=== PATIENT | female | born 1955 | race Caucasian/White ===

== ENCOUNTER 2017-07-22 | Emergency (ER) | payer BC ==
[~2017-07-22] VITALS: Ht 162.6 cm; Wt 91.2 kg
[~2017-07-22] MED LIST: ATENOLOL PO; OXAZEPAM10 MG PO; PAXIL CR12.5 MG PO; VITAMIN B-12 PO; VITAMIN D PO
[2017-07-22] MEDS ORDERED: KETOROLAC TROMETHAMINE 30 MG/ML VIAL IV STA (00:14)
[2017-07-22 00:49] LABS: BASOPHILS # (AUTO) 0.1 (0.0-0.1); BASOPHILS % 0.8 % (0.0-1.0); EOSINOPHILS # (AUTO) 0.3 (0.0-0.4); EOSINOPHILS % 2.7 % (0.0-6.0); HEMATOCRIT 44.1 % (34.2-44.1); HEMOGLOBIN 14.8 g/dL (12.0-16.0); LYMPHOCYTES # (AUTO) 2.2 (1.0-3.2); LYMPHOCYTES % 18.3 % (18.0-39.1); MEAN CORPUSCULAR HGB CONC 33.6 g/dL (31-35); MEAN CORPUSCULAR VOLUME 92.5 fL (81-99); MONOCYTES # (AUTO) 1.7 (0.2-0.8); MONOCYTES % 13.6 % (4.4-11.3); NEUTROPHILS # (AUTO) 7.7 (2.1-6.9); NEUTROPHILS % 63.3 % (38.7-80.0); PLATELET COUNT 289 x10e3/uL (140-360); RED BLOOD COUNT 4.77 x10e6/uL (3.6-5.1); RED CELL DISTRIBUTION WIDTH 14.4 % (11.7-14.4)
[2017-07-22 01:01] LABS: BILIRUBIN,URINE NEGATIVE (NEGATIVE); CLARITY,URINE CLEAR (CLEAR); COLOR,URINE YELLOW (YELLOW); KETONES,URINE NEGATIVE (NEGATIVE); LEUKOCYTE ESTERASE ,URINE NEGATIVE (NEGATIVE); NITRITE,URINE NEGATIVE (NEGATIVE); PROTEIN,URINE DIPSTICK NEGATIVE (NEGATIVE)
[2017-07-22 01:02] LABS: URINE UROBILINOGEN 1 mg/dL (0.2 - 1)
[2017-07-22 01:07] LABS: ALANINE AMINOTRANSFERASE 20 IU/L (0-55); ALBUMIN 3.3 g/dL (3.5-5.0); ALBUMIN/GLOBULIN RATIO 0.8 (0.8-2.0); ALKALINE PHOSPHATASE 79 IU/L (40-150); ANION GAP 12.1 mmol/L (8-16); BLOOD UREA NITROGEN 14 mg/dL (7-26); BUN/CREATININE RATIO 18 (6-25); CALCIUM 9.9 mg/dL (8.4-10.2); CARBON DIOXIDE 31 mmol/L (22-29); CHLORIDE 99 mmol/L (98-107); CREATININE, SERUM 0.79 mg/dL (0.57-1.11); EST GLOMERULAR FILTRATION RATE > 60 ML/MIN (60-); GLUCOSE 84 mg/dL (74-118); POTASSIUM 3.1 mmol/L (3.5-5.1); SODIUM 139 mmol/L (136-145)
[2017-07-22 01:18] LABS: WBC,URINE (MAN) 0-5 /HPF (0-5)
[2017-07-22 01:19] LABS: BACTERIA,URINE FEW /HPF; EPITHELIAL CELLS,URINE FEW /LPF; RBC,URINE 0-5 /HPF (0-5)
--- NOTE | 2017-07-22 01:28 | Diagnostic Imaging Report ---
CHEST SINGLE (PORTABLE), 07/22/2017 12:13 AM Technique: CHEST SINGLE (PORTABLE) Comparison: None available. Clinical history: Painful inspiration Findings: Limited single portable view Heart/mediastinum: Normal for portable technique. Lungs/pleural spaces: No consolidation or edema. Focal appearance right basilar pleural thickening or fluid. Impression: Focal apparent right basilar pleural thickening or fluid. Recommend upright PA and lateral for better evaluation. Signed by: Dr Sumaya Hernandez MD on 07/22/2017 1:25 AM
[2017-07-22 02:21] LABS: LYMPHOCYTES % (MANUAL) 18 % (19-48); MONOCYTES % (MANUAL) 14 % (3.4-9.0); NEUTROPHILS % (MANUAL) 65 % (40-74); PLATELET ESTIMATE ADEQUATE; PLATELET MORPHOLOGY COMMENT NORMAL; RBC MORPHOLOGY COMMENT NORMAL
[2017-07-22] MEDS ORDERED: SODIUM CHLORIDE 0.9% 50ML 50 ML ONE (02:33)
[2017-07-22] MEDS ORDERED: IOPAMIDOL 370 MG/ML 200 ML INFUS..BTL INJ ONE (02:33)
--- NOTE | 2017-07-22 02:58 | Diagnostic Imaging Report ---
EXAM: CT CHEST W DATE: 07/22/2017 1:21 AM INDICATION: Right-sided pain COMPARISON: None TECHNIQUE: Multidetector CT scanning of the chest was performed. Coronal and sagittal multiplanar reformations were obtained. IV Contrast: 72 ml Isovue 370/300 FINDINGS: LUNGS AND PLEURA: Mild underlying emphysema. 2 mm right middle lobe nodule, nonspecific. There is focal right lateral basilar and lingular opacity. Minimal left basilar scarring. No effusions or pneumothorax. HEART, MEDIASTINUM, VESSELS: No evidence of acute pulmonary artery embolism. Main pulmonary artery and aorta are normal in caliber. Scattered coronary artery and aortic atherosclerotic change. Normal heart size. No pericardial effusion. No adenopathy. Incidental right thyroid nodules noted at the visualized lung bases. UPPER ABDOMEN: Status post cholecystectomy. Otherwise unremarkable. MUSCULOSKELETAL: No acute findings. IMPRESSION: 1. No evidence of acute pulmonary artery embolism. 2. Right lateral basilar lingular opacity, favor scarring or sequelae of recent/resolving infection. Recommend short-term follow-up upright PA and lateral radiographs to document stability. 3. Mild emphysematous changes. Signed by: Dr Sumaya Hernandez MD on 07/22/2017 2:55 AM
== END 2017-07-22 03:25 | disposition home or self-care (01) ==
LOC: ER
DX: R10.9 Unspecified abdominal pain (principal); R09.1 Pleurisy; J15.9 Unspecified bacterial pneumonia; I10 Essential (primary) hypertension; F41.9 Anxiety disorder, unspecified; F32.9 Major depressive disorder, single episode, unspecified; F17.210 Nicotine dependence, cigarettes, uncomplicated
CPT/HCPCS: 36415; 71045; 71260; 80053; 81001; 85025; 85379; 99284; J1885; Q9967

== ENCOUNTER 2018-07-10 07:33 | Emergency (ER) | payer BC ==
[~2018-07-10] VITALS: Ht 162.6 cm; Wt 91.2 kg
--- OUTSIDE RECORDS SUMMARY | 2018-07-10 07:35 | XMS REPORT | Summary of Care ---
Author Organization Unknown Address Unknown Phone Unavailable Encounter HQ Encntr_alias(FIN) [id number] Date(s): 08/20/14 - 08/20/14 [facility] Outpatient Imaging [address] [address]- [phone] Discharge Disposition: Home Physician Attending: Bharath Cassidy MD Vital Signs No data available for this section Problem List No data available for this section Allergies, Adverse Reactions, Alerts Substance Reaction Severity Status NKDA Active Medications No data available for this section Results No data available for this section Immunizations No data available for this section Procedures No data available for this section Social History No data available for this section Assessment and Plan No data available for this section
--- OUTSIDE RECORDS SUMMARY | 2018-07-10 07:35 | XMS REPORT | Continuity of Care Document ---
Author Author [facility] Interface Address Unknown Phone Unavailable Problems Problem Status Onset Date Classification Date Reported Comments Source LAP VAG HYST Active 06/23/2018 [facility] Z12.39 Z13.820 Active 02/18/2018 [facility] R92.8 OTHER ABNORMAL AND INCONCLUSIVE FI Active 11/08/2015 [facility] 6 MONTH FOLLOW UP A FOLLOW-UP R Active 05/28/2015 [facility] ABN MAMMO RT BREAST Active 11/08/2014 [facility] BACK PAIN Active 02/24/2007 [facility] Medications Medication Details Route Status Patient Instructions Ordering Provider Order Date Source Atenolol Daily [facility] Oxazepam 10 Mg Cap Daily Active [facility] Paroxetine Hcl (Paxil Cr) 12.5 Mg Tabsr Daily Active [facility] Vitamin B-12 Daily [facility] Vitamin D Daily [facility] Allergies, Adverse Reactions, Alerts Substance Category Reaction Severity Reaction type Status Date Reported Comments Source Immunizations Immunization Date Given Site Status Last Updated Comments Source Results Order Name Results Value Reference Range Date Interpretation Comments Source Intravenous Pyelogram DX Intravenous Pyelogram DX Intravenous Pyelogram DX CLINICAL HISTORY: - post-op hysterectomy. COMPARISON: None TECHNIQUE: IVP was performed with standard technique after intravenous infusion of nonionic contrast material. 100cc of omnipaque> contrast material was administered. 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 There are no radiopaque densities. There are no gross osseous abnormalities seen. Kidneys: There are prompt symmetric nephrograms with prompt excretion into the renal collecting systems. There are no filling defects or strictures noted. There are no contour deforming renal masses. Ureters: Both ureters are visualized segmentally in their entire course. There are no gross filling defects or strictures. There is no evidence for injury to either ureter. No leakage of contrast is noted in the peritoneum. Bladder: There is normal bladder contour and morphology. No gross filling defects or contour irregularities. There is no significant post void residual. IMPRESSION: Negative study. There is no evidence for obstruction or ureteral injury. SL: [id number] 07/08/2018 - - Read by: Brian Philippe MD Dictated Date/time: 07/08/18 08:32 Electronically Signed by: Brian Philippe MD 07/08/18 08:34 FINAL REPORT [facility] Breast Mammo Scrn [place] w campos incl CAD [place] Breast Mammo Scrn [place] w campos incl CAD [place] BILATERAL DIGITAL SCREENING MAMMOGRAM 3D/2D WITH CAD: 03/09/2018 CLINICAL: /Routine. Current study was evaluated with a Computer Aided Detection (CAD) system. COMPARISON:Comparison is made to exams dated: 11/20/2015 mammogram, 06/17/2015 mammogram, 11/14/2014 mammogram - [facility], 08/20/2014 mammogram, and 05/20/2007 mammogram - [facility]. TECHNIQUE: Digital Breast Tomosynthesis was performed and utilized for Interpretation. [employer] Version 1.3 was utilized for computer aided detection. FINDINGS: The tissue of both breasts is almost entirely fat. Patient complains of intermittent breast pain and/or tenderness. There are benign calcifications and nodules in the right breast. There also is a stable benign nodule in the left breast. No significant masses, calcifications, or other findings are seen in either breast. There has been no significant interval change. IMPRESSION: BENIGN RECOMMENDATION:Clinical management of the patient's breast complaints is recommended. There is no mammographic evidence of malignancy. A 1 year screening mammogram is recommended.(03/10/2019) This exam was interpreted at [id number] for [facility]. Burak parham/spenser:03/09/2018 14:54:15 Manager Transport(s): Kimmy Soriano [facility] letter sent: BI-RADS 1/2 Mammogram BI-RADS: 2 Benign 03/09/2018 - - Read by: Burak Brannon MD Dictated Date/time: 03/09/18 14:54 Electronically Signed by: Burak Brannon MD 03/09/18 14:54 FINAL REPORT [facility] Automated blood basophil count (count/volume) Automated blood basophil count (count/volume) 0.1 0.0 - 0.1 07/22/2017 [facility] Automated blood basophil count as percentage of total leukocytes Automated blood basophil count as percentage of total leukocytes 0.8 0.0 - 1.0 07/22/2017 [facility] Automated blood eosinophil count Automated blood eosinophil count 0.3 0.0 - 0.4 07/22/2017 [facility] Automated blood eosinophil count as percentage of total leukocytes Automated blood eosinophil count as percentage of total leukocytes 2.7 0.0 - 6.0 07/22/2017 [facility] Automated blood hematocrit (volume fraction) Automated blood hematocrit (volume fraction) 44.1 34.2 - 44.1 07/22/2017 [facility] Automated blood lymphocyte count as percentage ot total leukocytes Automated blood lymphocyte count as percentage ot total leukocytes 18.3 18.0 - 39.1 07/22/2017 [facility] Automated blood monocyte count as percentage of total leukocytes Automated blood monocyte count as percentage of total leukocytes 13.6 4.4 - 11.3 07/22/2017 [facility] Automated blood neutrophil count Automated blood neutrophil count 7.7 2.1 - 6.9 07/22/2017 [facility] Automated blood platelet count (count/volume) Automated blood platelet count (count/volume) 289 140 - 360 07/22/2017 [facility] Automated blood segmented neutrophil count as percentage of total leukocytes Automated blood segmented neutrophil count as percentage of total leukocytes 63.3 38.7 - 80.0 07/22/2017 [facility] Automated erythrocyte mean corpuscular hemoglobin (mass per erythrocyte) Automated erythrocyte mean corpuscular hemoglobin (mass per erythrocyte) 31.0 28 - 32 07/22/2017 [facility] Automated erythrocyte mean corpuscular hemoglobin concentration measurement (mass/volume) Automated erythrocyte mean corpuscular hemoglobin concentration measurement (mass/volume) 33.6 31 - 35 07/22/2017 [facility] Automated erythrocyte mean corpuscular volume Automated erythrocyte mean corpuscular volume 92.5 81 - 99 07/22/2017 [facility] Blood erythrocytes automated count (number/volume) Blood erythrocytes automated count (number/volume) 4.77 3.6 - 5.1 07/22/2017 [facility] Blood hemoglobin measurement (moles/volume) Blood hemoglobin measurement (moles/volume) 14.8 12.0 - 16.0 07/22/2017 [facility] Blood leukocytes automated count (number/volume) Blood leukocytes automated count (number/volume) 12.17 4.8 - 10.8 07/22/2017 [facility] Blood lymphocytes count (number/volume) Blood lymphocytes count (number/volume) 2.2 1.0 - 3.2 07/22/2017 [facility] Blood lymphocytes variant count (number/volume) Blood lymphocytes variant count (number/volume) 3 07/22/2017 [facility] Blood monocytes automated count (number/volume) Blood monocytes automated count (number/volume) 1.7 0.2 - 0.8 07/22/2017 [facility] Blood platelets count by estimate (number/volume) Blood platelets count by estimate (number/volume) ADEQUATE 07/22/2017 [facility] Estimated glomerular filtration rate (GFR) determination Estimated glomerular filtration rate (GFR) determination null 60 07/22/2017 [facility] Fibrin D-dimer DDU measurement in platelet poor plasma (mass/volume) Fibrin D-dimer DDU measurement in platelet poor plasma (mass/volume) 1.18 0.00 - 0.45 07/22/2017 [facility] Glucose measurement Glucose measurement 84 74 - 118 07/22/2017 [facility] Manual blood lymphocytes/100 leukocytes Manual blood lymphocytes/100 leukocytes 18 19 - 48 07/22/2017 [facility] Manual blood monocytes/100 leukocytes Manual blood monocytes/100 leukocytes 14 3.4 - 9.0 07/22/2017 [facility] Manual blood neutrophils/100 leukocytes Manual blood neutrophils/100 leukocytes 65 40 - 74 07/22/2017 [facility] Plasma globulin measurement (mass/volume) Plasma globulin measurement (mass/volume) 4.4 2.3 - 3.5 07/22/2017 [facility] Platelet morphology Platelet morphology NORMAL 07/22/2017 [facility] RBC morphology RBC morphology NORMAL 07/22/2017 [facility] Serum or plasma alanine aminotransferase measurement (enzymatic activity/volume) Serum or plasma alanine aminotransferase measurement (enzymatic activity/volume) 20 0 - 55 07/22/2017 [facility] Serum or plasma albumin measurement (mass/volume) Serum or plasma albumin measurement (mass/volume) 3.3 3.5 - 5.0 07/22/2017 [facility] Serum or plasma albumin/globulin mass ratio Serum or plasma albumin/globulin mass ratio 0.8 0.8 - 2.0 07/22/2017 [facility] Serum or plasma alkaline phosphatase measurement (enzymatic activity/volume) Serum or plasma alkaline phosphatase measurement (enzymatic activity/volume) 79 40 - 150 07/22/2017 [facility] Serum or plasma anion gap Serum or plasma anion gap 12.1 8 - 16 07/22/2017 [facility] Serum or plasma calcium measurement (mass/volume) Serum or plasma calcium measurement (mass/volume) 9.9 8.4 - 10.2 07/22/2017 [facility] Serum or plasma carbon dioxide, total measurement (moles/volume) Serum or plasma carbon dioxide, total measurement (moles/volume) 31 22 - 29 07/22/2017 [facility] Serum or plasma chloride measurement (moles/volume) Serum or plasma chloride measurement (moles/volume) 99 98 - 107 07/22/2017 [facility] Serum or plasma creatinine measurement (mass/volume) Serum or plasma creatinine measurement (mass/volume) 0.79 0.57 - 1.11 07/22/2017 [facility] Serum or plasma potassium measurement (moles/volume) Serum or plasma potassium measurement (moles/volume) 3.1 3.5 - 5.1 07/22/2017 [facility] Serum or plasma protein measurement (mass/volume) Serum or plasma protein measurement (mass/volume) 7.7 6.5 - 8.1 07/22/2017 [facility] Serum or plasma sodium measurement (moles/volume) Serum or plasma sodium measurement (moles/volume) 139 136 - 145 07/22/2017 [facility] Serum or plasma total bilirubin measurement (mass/volume) Serum or plasma total bilirubin measurement (mass/volume) 0.6 0.2 - 1.2 07/22/2017 [facility] Serum or plasma urea nitrogen measurement (mass/volume) Serum or plasma urea nitrogen measurement (mass/volume) 14 7 - 26 07/22/2017 [facility] Serum or plasma urea nitrogen/creatinine mass ratio Serum or plasma urea nitrogen/creatinine mass ratio 18 6 - 25 07/22/2017 [facility] Red Cell Distribution Width 14.4 11.7 - 14.4 07/22/2017 [facility] IM GRANULOCYTES % 1.3 0.0 - 1.0 07/22/2017 [facility] Absolute Immature Granulocyte (auto 0.16 0 - 0.1 07/22/2017 [facility] Differential Total Cells Counted 100 07/22/2017 [facility] Aspartate Amino Transf (AST/SGOT) 23 5 - 34 07/22/2017 [facility] Automated urine sediment leukocyte count by microscopy (number/high power field) Automated urine sediment leukocyte count by microscopy (number/high power field) null 0 - 5 07/22/2017 [facility] Bacteria detection in urine sediment by light microscopy Bacteria detection in urine sediment by light microscopy FEW NONE 07/22/2017 [facility] Epithelial cells detection in urine sediment by light microscopy Epithelial cells detection in urine sediment by light microscopy FEW NONE 07/22/2017 [facility] Erythrocytes detection in urine sediment by light microscopy Erythrocytes detection in urine sediment by light microscopy null 0 - 5 07/22/2017 [facility] Specific gravity of Urine by Test strip Specific gravity of Urine by Test strip 1.020 1.010 - 1.025 07/22/2017 [facility] Urine clarity Urine clarity CLEAR CLEAR 07/22/2017 [facility] Urine color determination Urine color determination YELLOW YELLOW 07/22/2017 [facility] Urine erythrocytes detection Urine erythrocytes detection TRACE NEGATIVE 07/22/2017 [facility] Urine glucose detection Urine glucose detection NEGATIVE NEGATIVE 07/22/2017 [facility] Urine ketones detection by automated test strip Urine ketones detection by automated test strip NEGATIVE NEGATIVE 07/22/2017 [facility] Urine leukocyte esterase detection by dipstick Urine leukocyte esterase detection by dipstick NEGATIVE NEGATIVE 07/22/2017 [facility] Urine nitrite detection Urine nitrite detection NEGATIVE NEGATIVE 07/22/2017 [facility] Urine pH measurement by automated test strip Urine pH measurement by automated test strip 6 5 - 7 07/22/2017 [facility] Urine protein measurement by test strip (mass/volume) Urine protein measurement by test strip (mass/volume) NEGATIVE NEGATIVE 07/22/2017 [facility] Urine total bilirubin measurement (mass/volume) Urine total bilirubin measurement (mass/volume) NEGATIVE NEGATIVE 07/22/2017 [facility] Urine urobilinogen measurement by test strip (mass/volume) Urine urobilinogen measurement by test strip (mass/volume) 1 0.2 - 1 07/22/2017 [facility] Breast Complete Uni US Breast Complete Uni US - BREAST COMPLETE UNI US/R ULTRASOUND OF RIGHT BREAST AND RIGHT AXILLA: 11/20/2015 CLINICAL: Cyst abnormal mammogram, mammographic nodule/density probably benign finding - follow up. Comparison is made to exams dated: 11/20/2015 mammogram, 06/17/2015 ultrasound, 06/17/2015 mammogram, 11/14/2014 ultrasound, 11/14/2014 mammogram - [facility] and 08/20/2014 mammogram - [facility]. Color flow and real-time ultrasound of the right breast and axilla were performed. Goss scale images of the real-time examination were reviewed. All 4 quadrants, the retroareolar region and axilla are evaluated in this exam. There is a stable 6 mm wider than tall oval cyst with a septated internal wall in the right breast at 6 o'clock in the retroareolar region. This oval cyst is hypoechoic with internal echoes and posterior acoustic enhancement. This correlates with mammography and ultrasound findings. Color flow imaging demonstrates that there is no vascularity present. Benign right breast 6 o'clock intramammary node is noted as well. No abnormalities were seen sonographically in the right axilla. There has been no significant interval change. IMPRESSION: PROBABLY BENIGN - FOLLOW-UP RECOMMENDED The stable 6 mm wider than tall oval cyst in the right breast likely represents a complicated cyst and is probably benign. This has shown 1 year of stability. A follow-up bilateral diagnostic mammogram and possible ultrasound in 12 months is recommended. The results were reviewed with the patient. Burak Brannon M.D. jt/:11/20/2015 09:56:55 Manager Transport: Markus Simon, [facility] This exam was dictated and interpreted by [id number] for [facility]. letter sent: Followup Ultrasound BI-RADS: 3 Probably benign 11/20/2015 - - Read by: Burak Brannon MD Dictated Date/time: 11/20/15 09:56 Electronically Signed by: Burak Brannon MD 11/20/15 09:56 FINAL REPORT [facility] Digital Mammo DX [place] Digital Mammo DX [place] - DIGITAL MAMMO DX [place] BILATERAL DIGITAL DIAGNOSTIC MAMMOGRAM WITH CAD: 11/20/2015 CLINICAL: 6 Mo Follow Up probably benign finding right breast mass. Current study was evaluated with a Computer Aided Detection (CAD) system. Comparison is made to exams dated: 06/17/2015 mammogram, 11/14/2014 mammogram - [facility], 08/20/2014 mammogram, 05/20/2007 mammogram - [facility], 07/28/2005 and 10/10/2002 mammogram - [facility]. There are scattered fibroglandular densities in both breasts. There is a benign calcification in the right breast. There also are benign nodules in the right breast. There is an 8 mm nodule in the right breast central to the nipple anterior depth. This is demonstrated by prior ultrasound. This is not significantly changed and correlates with the prior exam. No other significant masses, calcifications, or other findings are seen in either breast. There has been no significant interval change. IMPRESSION: INCOMPLETE: NEEDS ADDITIONAL IMAGING EVALUATION The 8 mm nodule in the right breast is indeterminate. An ultrasound is recommended. The results were reviewed with the patient. SUMMARY: Ultrasound will be performed at this time; please see dedicated separate report. Ultrasound will also reevaluate prior probably benign findings. Burak parham/penrad:11/20/2015 09:50:43 Manager Transport: Junie Santos, [facility] This exam was dictated and interpreted by [id number] for [facility]. Mammogram BI-RADS: 0 Indeterminate 11/20/2015 - - Read by: Burak Brannon MD Dictated Date/time: 11/20/15 09:50 Electronically Signed by: Burak Brannon MD 11/20/15 09:50 FINAL REPORT [facility] Pelvis w Pelvis Transvaginal US Pelvis w Pelvis Transvaginal US Clinical Indication: 60-year-old A2 female with postmenopausal bleeding; Comparison: Pelvic ultrasound 08/20/2014 US PELVIS Technique: Grayscale, color and Doppler transabdominal and transvaginal imaging of the pelvis was performed with standard technique. FINDINGS: TRANSABDOMINAL PELVIC ULTRASOUND: UTERUS: The transabdominal pelvic ultrasound evaluation of the uterus shows anteverted uterus. The uterine parenchyma is not well assessed on the transabdominal pelvic ultrasound. OVARIES: The ovaries are not well seen on the transabdominal portion of the exam, related to bowel gas in the pelvis. OTHER FINDINGS: The transabdominal sonographic images show no free fluid in the pelvic cul-de-sac. IMPRESSION: 1. Limited assessment of the uterine parenchyma and ovaries on the transabdominal pelvic ultrasound, related to bowel gas in the pelvis. This necessitated a pelvic transvaginal ultrasound. Recommend correlation with the transvaginal pelvic ultrasound report. TRANSVAGINAL PELVIC ULTRASOUND: UTERUS: The pelvic transvaginal sonographic images show normal uterine contour and morphology. The uterus measures 6.2 x 3.4 x 5.8 cm. There is normal parenchymal echotexture. The endometrial stripe measures 11 mm in thickness. No increase in vascularity on color Doppler. Nabothian cysts in the cervix are noted. OVARIES: The transvaginal pelvic sonographic images show that the right ovary measures 2.8 x 1.7 x 1.8 cm and the left ovary measures 2.5 x 1.8 x 1.6 cm. There is normal ovarian contour and morphology. There are no adnexal masses. The limited Doppler images show normal bilateral ovarian blood flow. OTHER FINDINGS: The transvaginal sonographic images show no free fluid in the pelvic cul-de-sac. If there is further concern, followup pelvic sonography or MRI of the pelvis may be performed. IMPRESSION: 1. Diffuse mildly thickened endometrium, not significantly changed since 08/20/2014. In this postmenopausal patient with bleeding, this may represent endometrial hyperplasia or malignancy. SL: [id number] 11/20/2015 - - Read by: Castro Coyle MD Dictated Date/time: 11/20/15 11:21 Electronically Signed by: Castro Coyle MD 11/20/15 11:24 FINAL REPORT [facility] Breast Complete Uni US Breast Complete Uni US - BREAST COMPLETE UNI US/R ULTRASOUND OF RIGHT BREAST AND RIGHT AXILLA: 06/17/2015 CLINICAL: Cyst. Comparison is made to exams dated: 06/17/2015 mammogram, 11/14/2014 ultrasound and 11/14/2014 mammogram - [facility]. Ultrasound was performed over all four quadrants, retroareolar region, and axilla. Color flow and real-time ultrasound of the right breast and axilla were performed. Goss scale images of the real-time examination were reviewed. There is a stable 6 mm wider than tall oval nodule with a circumscribed margin in the right breast at 6 o'clock in the retroareolar region. This oval nodule is hypoechoic. This correlates with mammography findings. No abnormalities were seen sonographically in the right axilla. There has been no significant interval change. IMPRESSION: PROBABLY BENIGN - FOLLOW-UP RECOMMENDED The stable 6 mm wider than tall oval nodule in the right breast likely represents a complicated cyst and is probably benign. A follow-up mammogram and an ultrasound in 6 months is recommended to demonstrate stability. Nic Farrar M.D. ap/penrad:06/17/2015 10:18:03 Manager Transport: Markus Simon, [facility] This exam was dictated and interpreted by [id number] for [facility]. letter sent: Followup Ultrasound BI-RADS: 3 Probably benign 06/17/2015 - - Read by: Nic Farrar MD Dictated Date/time: 06/17/15 10:18 Electronically Signed by: Nic Farrar MD 06/17/15 10:18 FINAL REPORT [facility] Digital Mammo DX [place] Digital Mammo DX [place] - DIGITAL MAMMO DX [place]I MA/R UNILATERAL RIGHT DIGITAL DIAGNOSTIC MAMMOGRAM: 06/17/2015 CLINICAL: 6 Mth F/U. Comparison is made to exams dated: 11/14/2014 mammogram - [facility], 08/20/2014 mammogram, 05/20/[address] - [facility], 07/28/2005 and 10/10/2002 mammogram - [facility]. There are scattered fibroglandular densities in the right breast. There is a benign calcification in the right breast. There also are benign nodules in the right breast. There is a stable nodule in the right breast central to the nipple anterior depth. No other significant masses or calcifications are seen in the breast. IMPRESSION: INCOMPLETE: NEEDS ADDITIONAL IMAGING EVALUATION The stable nodule in the right breast is indeterminate. An ultrasound is recommended. SUMMARY: Ultrasound will be performed at this time; please see dedicated separate report. Nic Farrar M.D. ap/penrad:06/17/2015 09:25:17 Manager Transport: Kimmy Soriano, [facility] This exam was dictated and interpreted by [id number] for [facility]. Mammogram BI-RADS: 0 Indeterminate 06/17/2015 - - Read by: Nic Farrar MD Dictated Date/time: 06/17/15 09:25 Electronically Signed by: Nic Farrar MD 06/17/15 09:25 FINAL REPORT [facility] [facility] Breast Complete Uni US Breast Complete Uni US - BREAST COMPLETE UNI US/R ULTRASOUND OF RIGHT BREAST AND RIGHT AXILLA: 11/14/2014 CLINICAL: Nodule abnormal mammogram, mammographic nodule/density. Comparison is made to exams dated: 11/14/2014 mammogram - [facility], 08/20/2014 mammogram, 05/20/2007 mammogram - [facility] and 07/28/2005. Color flow and real-time ultrasound of the right breast and axilla were performed. Goss scale images of the real-time examination were reviewed. All 4 quadrants, the retroareolar region and axilla are evaluated in this exam. There is a 5 mm wider than tall oval cyst with a septated internal wall in the right breast at 6 o'clock middle depth. This oval cyst is hypoechoic with internal echoes and posterior acoustic enhancement. This most likely correlates with mammography findings. Color flow imaging demonstrates that there is no vascularity present. No abnormalities were seen sonographically in the right axilla. IMPRESSION: PROBABLY BENIGN - FOLLOW-UP RECOMMENDED The 5 mm wider than tall oval cyst in the right breast is probably benign. A follow-up in 6 months is recommended. A follow-up right diagnostic mammogram with possible ultrasound in 6 months is recommended to demonstrate stability. Burak parham/:11/14/2014 09:33:32 Manager Transport: Markus Simon, [facility] This exam was dictated and interpreted by [id number] for [facility]. letter sent: Followup Ultrasound BI-RADS: 3 Probably benign 11/14/2014 - - Read by: Burak Brannon MD Dictated Date/time: 11/14/14 09:33 Electronically Signed by: Burak Brannon MD 11/14/14 09:33 FINAL REPORT [facility] Digital Mammo DX Uni MA Digital Mammo DX Uni MA - DIGITAL MAMMO DX UNI MA/R UNILATERAL RIGHT DIGITAL DIAGNOSTIC MAMMOGRAM WITH CAD: 11/14/2014 CLINICAL: Mammographic Abnormality. Current study was evaluated with a Computer Aided Detection (CAD) system. Comparison is made to exams dated: 08/20/2014 mammogram, 05/20/2007 mammogram - [facility] and 07/28/2005. There are scattered fibroglandular densities in the right breast. There is a benign calcification in the right breast. There also are benign nodules in the right breast. There is a nodule in the right breast central to the nipple anterior depth. This correlates with the prior exam. No other significant masses or calcifications are seen in the breast. IMPRESSION: INCOMPLETE: NEEDS ADDITIONAL IMAGING EVALUATION The nodule in the right breast is indeterminate. An ultrasound is recommended. SUMMARY: Ultrasound will be performed at this time; please see dedicated separate report. Burak parham/penrad:11/14/2014 09:33:54 Manager Transport: Junie Santos, [facility] This exam was dictated and interpreted by [id number] for [facility]. Mammogram BI-RADS: 0 Indeterminate 11/14/2014 - - Read by: Burak Brannon MD Dictated Date/time: 11/14/14 09:33 Electronically Signed by: Burak Brannon MD 11/14/14 09:33 FINAL REPORT [facility] Vital Signs Vital Sign Value Date Comments Source Encounters Location Location Details Encounter Type Encounter Number Reason For Visit Attending Provider ADM Date DC Date Status Source [facility] Outpatient Imaging [facility] Services [id number] Bharath Rodriguezen 08/20/2014 08/21/2014 MIGUEL A [facility] Outpatient [id number] [facility] 06/17/2015 06/18/2015 [facility] Outpatient [id number] [facility] 11/20/2015 11/21/2015 [facility] Depart Emergency Room [id number] SNADEE RAMIREZ MD 07/22/2017 07/22/2017 [facility] Procedures Procedure Code Date Perfomer Comments Source Computed tomography of chest with contrast [id number] 07/22/2017 ASHLEY [facility]
--- OUTSIDE RECORDS SUMMARY | 2018-07-10 07:35 | XMS REPORT | Summary of Care ---
Author Author [facility] Organization [facility] Address Unknown Phone Unavailable Encounter HQ Encntr_alias(FIN) [id number] Date(s): 06/17/15 - 06/17/[address] [facility] [address] [place] [address]- Discharge Disposition: Home Attending Physician: Bharath Cassidy MD Referring Physician: Bharath Cassidy MD Vital Signs No data [...]
--- OUTSIDE RECORDS SUMMARY | 2018-07-10 07:35 | XMS REPORT | Summary of Care ---
Author Author [facility] Organization [facility] Address Unknown Phone Unavailable Encounter HQ Encntr_alias(FIN) [id number] Date(s): 11/20/15 - 11/20/15 [facility] [address] [place] [address]- Discharge Disposition: Home or Self Care Attending Physician: Bharath Cassidy MD Referring Physician: [...]
--- OUTSIDE RECORDS SUMMARY | 2018-07-10 07:36 | XMS REPORT ---
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 Allergies, Adverse Reactions, Alerts This patient has no known allergies or adverse reactions. Medications This patient has no known medications. Encounters Start Date/Time End Date/Time Encounter Type Admission Type Attending Clinicians Care Facility Care Department Encounter ID 2018-07-07 11:55:00 2018-07-07 11:55:00 Outpatient [id number] Results Test Description Test Time Test Comments Text Results Atomic Results Result Comments CT CHEST W [address] [address] Patient Name: YONATAN IZQUIERDO MR #: [id number] : 1955 Age/Sex: 61/F Req #: [id number] Adm Physician: Ordered by: SANDEE RAMIREZ MD Report #: [id number] Location: ER Room/Bed: Procedure: [id number] CT/CT CHEST W Exam Date: 07/22/17 Exam Time: 0209 REPORT STATUS: Signed EXAM: CT CHEST W DATE: 07/22/2017 1:21 AM INDICATION: Right-sided pain COMPARISON: None TECHNIQUE: Multidetector CT scanning of the chest was performed. Coronal and sagittal multiplanar reformations were obtained. IV Contrast: 72 ml Isovue 370/300 FINDINGS: LUNGS AND PLEURA: Mild underlying emphysema. 2 mm right middle lobe nodule, nonspecific. There is focal right lateral basilar and lingular opacity. Minimal left basilar scarring. No effusions or pneumothorax. HEART, MEDIASTINUM, VESSELS: No evidence of acute pulmonary artery embolism. Main pulmonary artery and aorta are normal in caliber. Scattered coronary artery and aortic atherosclerotic change. Normal heart size. No pericardial effusion. No adenopathy. Incidental right thyroid nodules noted at the visualized lung bases. UPPER ABDOMEN: Status post cholecystectomy. Otherwise unremarkable. MUSCULOSKELETAL: No acute findings. IMPRESSION: 1. No evidence of acute pulmonary artery embolism. 2. Right lateral basilar lingular opacity, favor scarring or sequelae of recent/resolving infection. Recommend short-term follow-up upright PA and lateral radiographs to document stability. 3. Mild emphysematous changes. Signed by: Dr Taye Hernandez MD on 07/22/2017 2:55 AM Dictated By: TAYE HERNANDEZ MD 4 Transcribed By: KIMBERLY on 07/22/17254 COPY TO: SANDEE RAMIREZ MD CHEST SINGLE (PORTABLE) [place] [address] Patient Name: YONATAN IZQUIERDO MR #: [id number] : 1955 Age/Sex: 61/F Req #: [id number] Adm Physician: Ordered by: SANDEE RAMIREZ MD Report #: [id number] Location: ER Room/Bed: Procedure: [id number] DX/CHEST SINGLE (PORTABLE) Exam Date: 07/22/17 Exam Time: 44 REPORT STATUS: Signed CHEST SINGLE (PORTABLE), 07/22/2017 12:13 AM Technique: CHEST SINGLE (PORTABLE) Comparison: None available. Clinical history: Painful inspiration Findings: Limited single portable view Heart/mediastinum: Normal for portable technique. Lungs/pleural spaces: No consolidation or edema. Focal appearance right basilar pleural thickening or fluid. Impression: Focal apparent right basilar pleural thickening or fluid. Recommend upright PA and lateral for better evaluation. Signed by: Dr Taye Hernandez MD on 07/22/2017 1:25 AM Dictated By: TAYE HERNANDEZ MD 4 Transcribed By: KIMBERLY on 07/22/17124 COPY TO: SANDEE RAMIREZ MD
[2018-07-10 08:58] LABS: BASOPHILS # (AUTO) 0.1 (0.0-0.1); BASOPHILS % 0.8 % (0.0-1.0); EOSINOPHILS # (AUTO) 0.2 (0.0-0.4); EOSINOPHILS % 1.9 % (0.0-6.0); HEMATOCRIT 45.7 % (34.2-44.1); HEMOGLOBIN 14.7 g/dL (12.0-16.0); LYMPHOCYTES # (AUTO) 1.7 (1.0-3.2); LYMPHOCYTES % 15.4 % (18.0-39.1); MEAN CORPUSCULAR HEMOGLOBIN 30.6 pg (28-32); MEAN CORPUSCULAR HGB CONC 32.2 g/dL (31-35); MONOCYTES # (AUTO) 1.3 (0.2-0.8); MONOCYTES % 11.5 % (4.4-11.3); NEUTROPHILS # (AUTO) 7.5 (2.1-6.9); NEUTROPHILS % 68.7 % (38.7-80.0); PLATELET COUNT 248 x10e3/uL (140-360); RED BLOOD COUNT 4.81 x10e6/uL (3.6-5.1); RED CELL DISTRIBUTION WIDTH 14.7 % (11.7-14.4)
[2018-07-10 09:09] LABS: ANION GAP 12.7 mmol/L (8-16); BLOOD UREA NITROGEN 13 mg/dL (7-26); BUN/CREATININE RATIO 16 (6-25); CALCIUM 9.5 mg/dL (8.4-10.2); CARBON DIOXIDE 28 mmol/L (22-29); CHLORIDE 105 mmol/L (98-107); EST GLOMERULAR FILTRATION RATE > 60 ML/MIN (60-); GLUCOSE 88 mg/dL (74-118); POTASSIUM 4.7 mmol/L (3.5-5.1); SODIUM 141 mmol/L (136-145)
[2018-07-10 09:11] LABS: CLARITY,URINE CLEAR (CLEAR); COLOR,URINE YELLOW (YELLOW); LEUKOCYTE ESTERASE ,URINE NEGATIVE (NEGATIVE)
[2018-07-10 09:12] LABS: BILIRUBIN,URINE NEGATIVE (NEGATIVE); KETONES,URINE NEGATIVE (NEGATIVE); NITRITE,URINE NEGATIVE (NEGATIVE); PROTEIN,URINE DIPSTICK NEGATIVE (NEGATIVE); URINE UROBILINOGEN 0.2 mg/dL (0.2 - 1)
[2018-07-10 09:30] LABS: BACTERIA,URINE FEW /HPF; EPITHELIAL CELLS,URINE FEW /LPF; RBC,URINE 0-5 /HPF (0-5); WBC,URINE (MAN) 0-5 /HPF (0-5)
--- NOTE | 2018-07-10 10:00 | Diagnostic Imaging Report ---
A single frontal view of the chest. HISTORY: sob, panic attack COMPARISON: Chest radiograph July 22, 2017. DISCUSSION: Portable technique, limits sensitivity of the exam. Soft tissue attenuation partially limits sensitivity of the exam. Overlying monitoring leads and artifacts. Tubes/Lines: None Lungs and pleura: The lungs are well inflated. No evidence of a consolidative pneumonia or pulmonary alveolar edema. No definite pleural effusion or pneumothorax is identified. Heart and mediastinum: The cardiomediastinal silhouette appears unremarkable. Bones and soft tissues: Appear unremarkable, given this limited exam. IMPRESSION: 1. No acute radiographic abnormality. 2. No significant interval change. Signed by: Dr. Esa Da Silva D.O., M.M.M. on 07/10/2018 9:57 AM
== END 2018-07-10 10:33 | disposition home or self-care (01) ==
LOC: ER 07:33
DX: R06.00 Dyspnea, unspecified (principal); F41.1 Generalized anxiety disorder; I10 Essential (primary) hypertension; E11.9 Type 2 diabetes mellitus without complications
CPT/HCPCS: 36415; 71045; 80048; 81001; 85025; 93005; 99284

== ENCOUNTER 2018-10-08 07:21 | Emergency (ER) | payer BC ==
[~2018-10-08] VITALS: Ht 162.6 cm; Wt 91.2 kg
--- OUTSIDE RECORDS SUMMARY | 2018-10-08 07:25 | XMS REPORT | Summary of Care ---
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 Name Role Phone Patricia Douglas PCP Encounter HQ Encntr_elizabeth(FIN) [id number] Date(s): 03/09/18 - 03/09/18 [facility] [address] [place] [address]- Encounter Diagnosis Encounter for screening mammogram for malignant neoplasm of breast (Final) - 03/14/18 Discharge Disposition: Home or Self Care Attending Physician: Bharath Cassidy MD Admitting Physician: Bharath Cassidy MD Referring Physician: Bharath Cassidy MD Vital Signs No data available for this section Problem List Condition Effective Dates Status Health Status Informant Anxiety and Active depression(Confirmed ) Acid Resolved reflux(Confirmed) Hypertension(Confirm Active ed) Borderline diabetes Active mellitus(Confirmed) Sleep Active apnea(Confirmed) Allergies, Adverse Reactions, Alerts No Known Medication Allergies Medications No data available for this section Results No data available for this section Immunizations Not Given Vaccine Date Status Refusal Reason pneumococcal 23-valent vaccine 07/08/18 Not Given Patient Refuses Procedures Procedure Date Related Diagnosis Body Site Status Neck procedure 2018 Completed Hip replacement1 2016 Completed Appendectomy Completed Bilateral tubal ligation Completed Spinal operation Completed 1left hip Social History Social History Type Response Employment/School Status: Employed. Smoking Status Current every day smoker; Type: Cigarettes; Exposure to Tobacco Smoke None; Cigarette Smoking Last 365 Days Yes; Reg Smoking Cessation Counseling No; Tobacco use per day: 15; entered on: 07/07/18 Assessment and Plan No data available for this section
--- OUTSIDE RECORDS SUMMARY | 2018-10-08 07:25 | XMS REPORT | Summary of Care ---
Author Author [facility] Organization [facility] Address Unknown Phone Unavailable Encounter [facility](ALPHONSO) [id number] Date(s): 07/07/18 - 07/08/18 [facility] [address] [place] [address]- [phone] Discharge Disposition: Home or Self Care Attending Physician: Bharath Cassidy MD Referring Physician: Bharath Cassidy MD Vital Signs 1 2 3 Most recent to oldest [Reference Range]: 163.83 cm (07/01/18 2:36 PM) Height 98.1 DegF (07/08/18 7:25 AM) 97.9 DegF (07/07/18 11:46 PM) 97.7 DegF (07/07/18 4:26 PM) Temperature Oral [96.4-99.1 DegF] 129/59 mmHg (07/08/18 7:25 AM) 108/68 mmHg (07/07/18 11:46 PM) 150/76 mmHg *HI* (07/07/18 4:26 PM) Blood Pressure [90-140/60-90 mmHg] 17 BRMIN (07/08/18 7:25 AM) 16 BRMIN (07/08/18 7:15 AM) 16 BRMIN (07/07/18 11:46 PM) Respiratory Rate [14-20 BRMIN] 60 bpm (07/08/18 7:25 AM) 66 bpm (07/07/18 11:46 PM) 62 bpm (07/07/18 4:26 PM) Peripheral Pulse Rate [60-100 bpm] 92.528 kg (07/01/18 2:36 PM) Weight 34.47 m2 (07/01/18 2:36 PM) Body Mass Index Problem List Condition Effective Dates Status Health Status Informant Anxiety and Active depression(Confirmed ) Acid Resolved reflux(Confirmed) Hypertension(Confirm Active ed) Borderline diabetes Active mellitus(Confirmed) Sleep Active apnea(Confirmed) Allergies, Adverse Reactions, Alerts Substance Reaction Severity Status NKDA Active Medications acetaminophen-hydrocodone 325 mg-7.5 mg oral tablet 1 tab, Route: PO, Drug Form: TAB, Dosing Weight 92.528, kg, Q4H, Start date: 07/22 16:00:00 CDT, Duration: 30 day, Stop date: 08/06/18 12:00:00 CDT Notes: Same as [place] 325-7.5mg Do not exceed 4gm/day of acetaminophen. Start Date: 07/07/18 Stop Date: 07/08/18 Status: Discontinued ANES fentaNYL 25 microgram, Route: IVP, Q5Min, Dosing Weight 92.528, kg, PRN Pain Score 4-6, P riority: Routine, Start date: 07/07/18 12:29:00 CDT, Duration: 4 doses or times, Stop date: Limited # of times Start Date: 07/07/18 Stop Date: 07/07/18 Status: Discontinued ANES flumazenil 0.2 mg, Route: IVP, PRN, Dosing Weight 92.528, kg, PRN Benzodiazepine Reversal, Initial dose, Start date: 07/07/18 12:29:00 CDT, Duration: 30 day, Stop date: 12:28:00 CDT Start Date: 07/07/18 Stop Date: 07/07/18 Status: Discontinued ANES hydrALAZINE 10 mg, Route: IVP, Q20Min, Dosing Weight 92.528, kg, PRN Elevated BP, Start date : 07/07/18 12:29:00 CDT, Duration: 2 doses or times, Stop date: Limited # of alla es Start Date: 07/07/18 Stop Date: 07/07/18 Status: Discontinued ANES naloxone 0.4 mg, Route: IVP, Q2MIN, Dosing Weight 92.528, kg, PRN Narcotic Reversal, Star t date: 07/07/18 12:29:00 CDT, Duration: 8 doses or times, Stop date: Limited # of times Start Date: 07/07/18 Stop Date: 07/07/18 Status: Discontinued ANES ondansetron 4 mg, Route: IVP, ONCE, Dosing Weight 92.528, kg, PRN Nausea & Vomiting, Start date: 07/07/18 12:29:00 CDT Start Date: 07/07/18 Stop Date: 07/07/18 Status: Discontinued atenolol-chlorthalidone 50 mg-25 mg oral tablet 1 tab, PO, Daily, 0 Refill(s) Start Date: 07/01/18 Status: Ordered atenolol-chlorthalidone 50 mg-25 mg oral tablet 1 tab, Route: PO, Drug Form: TAB, Dosing Weight 92.528, kg, ONCE, Start date: 9:37:00 CDT, Stop date: 07/08/18 9:37:00 CDT Start Date: 07/08/18 Stop Date: 07/08/18 Status: Completed Benadryl 25 mg, 1 tab, Route: PO, Drug form: TAB, TID, Dosing Weight 92.528, kg, PRN Itch ing, Start date: 07/07/18 11:59:00 CDT, Duration: 30 day, Stop date: 08/06/18 11 :58:00 CDT Start Date: 07/07/18 Stop Date: 07/08/18 Status: Discontinued hydrochlorothiazide 25 mg, PO, Daily, 0 Refill(s) Start Date: 07/01/18 Status: Ordered hydrochlorothiazide 25 mg, 1 tab, Route: PO, Drug form: TAB, ONCE, Dosing Weight 92.528, kg, Start d ate: 07/08/18 9:38:00 CDT, Stop date: 07/08/18 9:38:00 CDT Notes: (Same as: Hydrodiuril) With food. Start Date: 07/08/18 Stop Date: 07/08/18 Status: Completed HYDROmorphone 0.5mg/mL DIE MAKER TRIM (15mg/30 mL) 15 mg 15 mg, 30 mL, Route: IV, Initial Loading Dose: 0.4mg, DIE MAKER TRIM Dose: 0.1mg, DIE MAKER TRIM [place] ut: 10 minutes, Continuous Basal Rate: 0.1 mg, 4 Hour Limit (In MG): 2.8, Drug F orm: INJ, Continuous, Start date: 07/07/18 11:58:00 CDT, Duration: 30 day, Stop date: 08/06... Notes: (Same as: Dilaudid) conc=0.5 mg/mlHydromorphone DIE MAKER TRIM Dose: ;Delay: ;Basal: Start Date: 07/07/18 Stop Date: 07/07/18 Status: Discontinued Januvia PO, Daily, 0 Refill(s) Start Date: 07/01/18 Status: Ordered ketOROLAC 10 mg oral tablet 10 mg, PO, Q6H, PRN Pain Score 1-3, # 30 btl, 0 Refill(s) Start Date: 07/08/18 Stop Date: 07/08/18 Status: Completed ketOROLAC 10 mg oral tablet 10 mg, Route: PO, Drug form: TAB, Q6H, Dosing Weight 92.528, kg, PRN Pain Score 1-3, Start date: 07/08/18 15:34:00 CDT, Duration: 4 day, Stop date: 07/12/18 15: 33:00 CDT Start Date: 07/08/18 Stop Date: 07/08/18 Status: Discontinued ketOROLAC 30 mg/mL injectable solution 30 mg, 1 mL, Route: IVP, Drug form: INJ, Q6H, Dosing Weight 92.528, kg, Start da te: 07/07/18 12:00:00 CDT, Duration: 4 day, Stop date: 07/11/18 9:30:00 CDT Notes: (Same as:Toradol) IV bolus must be given >15 seconds. Give IM administration slowly and deeply into the muscle.Not for use > 4 days MEDICATION WASTE Product Size: 30 mgProduct Wasted: ___ mg Start Date: 07/07/18 Stop Date: 07/08/18 Status: Discontinued Lactated Ringers Injection IV 1000 mL 1,000 mL, Rate: 25 ml/hr, Infuse over: 40 hr, Route: IV, Dosing Weight 92.528 kg , Total Volume: 1,000, Start date: 07/07/18 6:36:00 CDT, Duration: 30 day, Stop date: 08/06/18 6:35:00 CDT, 2.08, m2 Start Date: 07/07/18 Stop Date: 07/07/18 Status: Discontinued Lactated Ringers IV 1,000 mL 1,000 mL, Rate: 125 ml/hr, Infuse over: 8 hr, Route: IV, Dosing Weight 92.528 kg , Total Volume: 1,000, Start date: 07/07/18 11:59:00 CDT, Duration: 30 day, Stop date: 08/06/18 11:58:00 CDT, 2.08, m2 Start Date: 07/07/18 Stop Date: 07/08/18 Status: Discontinued naloxone 0.04 mg, 0.1 mL, Route: IVP, Drug form: INJ, Q2MIN, Dosing Weight 92.528, kg, MT N Narcotic Reversal, Start date: 07/07/18 11:58:00 CDT, Duration: 30 day, Stop d ate: 08/06/18 11:57:00 CDT Notes: Same as Narcan Start Date: 07/07/18 Stop Date: 07/07/18 Status: Discontinued Omnipaque 300 100 mL, Route: IV, Drug Form: SOLN, Dosing Weight 92.528, kg, ONCE, Start date: 07/08/18 7:25:00 CDT, Stop date: 07/08/18 7:25:00 CDT Notes: (Same as:Omnipaque 300).WASTE: F/P - Black; E - Municipal Trash Bin Start Date: 07/08/18 Stop Date: 07/08/18 Status: Completed ondansetron 4 mg, 2 mL, Route: IVP, Drug form: INJ, Q8H, Dosing Weight 92.528, kg, PRN Nause a, Start date: 07/07/18 11:59:00 CDT, Duration: 30 day, Stop date: 08/06/18 11:5 8:00 CDT Notes: (Same as: Zofran) MEDICATION WASTE Product Size: 4 mgProduct Was wm: ___ mg Start Date: 07/07/18 Stop Date: 07/08/18 Status: Discontinued oxazepam 10 mg, Route: PO, Drug form: CAP, ONCE, Dosing Weight 92.528, kg, Start date: 9:34:00 CDT, Stop date: 07/08/18 9:34:00 CDT Start Date: 07/08/18 Stop Date: 07/08/18 Status: Completed oxazepam 10 mg oral capsule 10 mg=1 cap, PO, QID, 0 Refill(s) Start Date: 07/01/18 Stop Date: 07/08/18 Status: Ordered PARoxetine 12.5 mg, Route: PO, ONCE, Dosing Weight 92.528, kg, Start date: 07/08/18 9:35:00 CDT, Stop date: 07/08/18 9:35:00 CDT Start Date: 07/08/18 Stop Date: 07/08/18 Status: Completed PARoxetine 12.5 mg oral tablet, extended release 12.5 mg=1 tab, PO, QAM, 0 Refill(s) Start Date: 07/01/18 Status: Ordered Tums 500 mg, CHEW, PRN as needed for dyspepsia, 0 Refill(s) Start Date: 07/01/18 Status: Ordered Tylenol with Codeine #3 oral tablet 1 tab, Route: PO, Drug Form: TAB, Dosing Weight 92.528, kg, Q6H, PRN Pain Score 1-3, Start date: 07/08/18 15:34:00 CDT, Duration: 30 day, Stop date: 08/07/18 15 :33:00 CDT Start Date: 07/08/18 Stop Date: 07/08/18 Status: Discontinued Tylenol with Codeine #3 oral tablet 1 tab, PO, Q6H, PRN Pain Score 1-3, # 30 tab, 2 Refill(s) Start Date: 07/08/18 Stop Date: 07/08/18 Status: Completed Results BLOOD BANK RESULTS Most recent to 1 oldest [Reference Range]: ABO/Rh A POS *Unknown* (07/01/18 3:16 PM) Antibody Scrn Negative (07/01/18 3:16 PM) ELECTROLYTES Most recent to 1 2 oldest [Reference Range]: Sodium Lvl [135-145 138 mEq/L 140 mEq/L mEq/L] (07/08/18 4:24 AM) (07/01/18 3:16 PM) Potassium Lvl 4.1 mEq/L 3.3 mEq/L [3.5-5.1 mEq/L] (07/08/18 4:24 AM) *LOW* (07/01/18 3:16 PM) Chloride Lvl [95-109 105 mEq/L 102 mEq/L mEq/L] (07/08/18 4:24 AM) (07/01/18 3:16 PM) CO2 [24-32 mEq/L] 28 mEq/L 28 mEq/L (07/08/18 4:24 AM) (07/01/18 3:16 PM) AGAP [10.0-20.0 9.1 mEq/L 13.3 mEq/L mEq/L] *LOW* (07/01/18 3:16 PM) (07/08/18 4:24 AM) CHEM PANEL Most recent to 1 2 oldest [Reference Range]: Creatinine Lvl 0.73 mg/dL 0.85 mg/dL [0.50-1.40 mg/dL] (07/08/18 4:24 AM) (07/01/18 3:16 PM) eGFR 89 mL/min/1.73m2 1 73 mL/min/1.73m2 2 *NA* *NA* (07/08/18 4:24 AM) (07/01/18 3:16 PM) BUN [7-22 mg/dL] 16 mg/dL 17 mg/dL (07/08/18 4:24 AM) (07/01/18 3:16 PM) B/C Ratio [6-25] 22 (07/08/18 4:24 AM) Glucose Lvl [70-99 130 mg/dL 91 mg/dL mg/dL] *HI* (07/01/18 3:16 PM) (07/08/18 4:24 AM) Total Protein 5.9 g/dL [6.4-8.4 g/dL] *LOW* (07/08/18 4:24 AM) Albumin Lvl [3.5-5.0 2.5 g/dL g/dL] *LOW* (07/08/18 4:24 AM) Globulin [2.7-4.2 3.4 g/dL g/dL] (07/08/18 4:24 AM) A/G Ratio [0.7-1.6] 0.7 (07/08/18 4:24 AM) Calcium Lvl 8.5 mg/dL 9.7 mg/dL [8.5-10.5 mg/dL] (07/08/18 4:24 AM) (07/01/18 3:16 PM) ALT [0-65 unit/L] 34 unit/L (07/08/18 4:24 AM) AST [0-37 unit/L] 31 unit/L (07/08/18 4:24 AM) Alk Phos [39-136 70 unit/L unit/L] (07/08/18 4:24 AM) Bili Total [0.2-1.3 0.4 mg/dL mg/dL] (07/08/18 4:24 AM) 1Result Comment: The eGFR is calculated using the CKD-EPI formula. In most young, healthy individuals the eGFR will be >90 mL/min/1.73m2. The eGFR declines with age. An eGFR of 60-89 may be normal in some populations, particularly the elderly, for whom the CKD-EPI formula has not been extensively validated. Use of the eGFR is not recommended in the following populations: Individuals with unstable creatinine concentrations, including patients and those with serious co-morbid conditions. Patients with extremes in muscle mass or diet. The data above are obtained from the National Kid[employer] Disease Education Program ( [employer]) which additionally recommends that when the eGFR is used in patients with extremes of body mass index for purposes of drug dosing, the eGFR should be mul tiplied by the estimated BMI. 2Result Comment: The eGFR is calculated using the CKD-EPI formula. In most young, healthy individuals the eGFR will be >90 mL/min/1.73m2. The eGFR declines with age. An eGFR of 60-89 may be normal in some populations, particularly the elderly, for whom the CKD-EPI formula has not been extensively validated. Use of the eGFR is not recommended in the following populations: Individuals with unstable creatinine concentrations, including patients and those with serious co-morbid conditions. Patients with extremes in muscle mass or diet. The data above are obtained from the National Kid[employer] Disease Education Program ( [employer]) which additionally recommends that when the eGFR is used in patients with extremes of body mass index for purposes of drug dosing, the eGFR should be mul tiplied by the estimated BMI. SPECIAL CHEMISTRY Most recent to 1 2 oldest [Reference Range]: Hgb A1C [<=5.6 %] 6.4 % *HI* (07/01/18 3:16 PM) HEMATOLOGY Most recent to 1 2 oldest [Reference Range]: WBC [3.7-10.4 K/CMM] 14.1 K/CMM 11.2 K/CMM *HI* *HI* (07/08/18 4:24 AM) (07/01/18 3:16 PM) RBC [4.20-5.40 4.15 M/CMM 5.07 M/CMM M/CMM] *LOW* (07/01/18 3:16 PM) (07/08/18 4:24 AM) Hgb [12.0-16.0 g/dL] 13.1 g/dL 15.7 g/dL (07/08/18 4:24 AM) (07/01/18 3:16 PM) Hct [36.0-48.0 %] 38.9 % 47.7 % (07/08/18 4:24 AM) (07/01/18 3:16 PM) MCV [80.0-98.0 fL] 93.9 fL 94.2 fL (07/08/18 4:24 AM) (07/01/18 3:16 PM) MCH [27.0-31.0 pg] 31.7 pg 31.0 pg *HI* (07/01/18 3:16 PM) (07/08/18 4:24 AM) MCHC [32.0-36.0 33.7 g/dL 32.9 g/dL g/dL] (07/08/18 4:24 AM) (07/01/18 3:16 PM) RDW [11.5-14.5 %] 14.3 % 14.8 % (07/08/18 4:24 AM) *HI* (07/01/18 3:16 PM) MPV [7.4-10.4 fL] 9.2 fL 8.9 fL (07/08/18 4:24 AM) (07/01/18 3:16 PM) Platelet [133-450 197 K/CMM 240 K/CMM K/CMM] (07/08/18 4:24 AM) (07/01/18 3:16 PM) Segs [45.0-75.0 %] 88.1 % 71.1 % *HI* (07/01/18 3:16 PM) (07/08/18 4:24 AM) Lymphocytes 6.2 % 17.0 % [20.0-40.0 %] *LOW* *LOW* (07/08/18 4:24 AM) (07/01/18 3:16 PM) Monocytes [2.0-12.0 5.6 % 9.0 % %] (07/08/18 4:24 AM) (07/01/18 3:16 PM) Eosinophils [0.0-4.0 2.3 % %] (07/01/18 3:16 PM) Basophils [0.0-1.0 0.1 % 0.6 % %] (07/08/18 4:24 AM) (07/01/18 3:16 PM) Neutrophils # 12.4 K/CMM 8.0 K/CMM [1.5-8.1 K/CMM] *HI* (07/01/18 3:16 PM) (07/08/18 4:24 AM) Lymphocytes # 0.9 K/CMM 1.9 K/CMM [1.0-5.5 K/CMM] *LOW* (07/01/18 3:16 PM) (07/08/18 4:24 AM) Monocytes # [0.0-0.8 0.8 K/CMM 1.0 K/CMM K/CMM] (07/08/18 4:24 AM) *HI* (07/01/18 3:16 PM) Eosinophils # 0.3 K/CMM [0.0-0.5 K/CMM] (07/01/18 3:16 PM) Basophils # [0.0-0.2 0.1 K/CMM K/CMM] (07/01/18 3:16 PM) Immunizations Not Given Vaccine Date Status Refusal Reason pneumococcal 23-valent vaccine 07/08/18 Not Given Patient Refuses Procedures Procedure Date Related Diagnosis Body Site Status Neck procedure 2017 Completed Hip replacement1 2016 Completed Appendectomy Completed [...]
--- OUTSIDE RECORDS SUMMARY | 2018-10-08 07:25 | XMS REPORT | Continuity of Care Document ---
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 Name Role Phone [employer] Unavailable Unavailable Problems Problem Status Onset Date Classification Date Reported Comments Source LAP VAG HYST Active 06/23/2018 [facility] Encounter for screening mammogram for malignant neoplasm of breast 03/15/2018 09/27/2018 [facility] Z12.39 Z13.820 Active 02/18/2018 [facility] R92.8 OTHER ABNORMAL AND INCONCLUSIVE FI Active 11/08/2015 [facility] 6 MONTH FOLLOW UP A FOLLOW-UP R Active 05/28/2015 [facility] ABN MAMMO RT BREAST Active 11/08/2014 [facility] BACK PAIN Active 02/24/2007 [facility] Anxiety and depression Active Problem 09/27/2018 [facility] Acid reflux Resolved Problem 09/27/2018 [facility] Hypertension Active Problem 09/27/2018 [facility] Borderline diabetes mellitus Active Problem 09/27/2018 [facility] Sleep apnea Active Problem 09/27/2018 [facility] Medications Medication Details Route Status Patient Instructions Ordering Provider Order Date Source Ketorolac Tromethamine 10 MG Oral Tablet 10 mg, PO, Q6H, PRN Pain Score 1-3, # 30 btl, 0 Refill(s) Inactive 07/08/2018 [facility] Acetaminophen 300 MG / Codeine Phosphate 30 MG Oral Tablet [Tylenol with Codeine #3] 1 tab, PO, Q6H, PRN Pain Score 1-3, # 30 tab, 2 Refill(s) Inactive 07/08/2018 [facility] Acetaminophen 300 MG / Codeine Phosphate 30 MG Oral Tablet [Tylenol with Codeine #3] 1 tab, Route: PO, Drug Form: TAB, Dosing Weight 92.528, kg, Q6H, PRN Pain Score 1-3, Start date: 07/08/18 15:34:00 CDT, Duration: 30 day, Stop date: 08/07/18 15:33:00 CDT Inactive 07/08/2018 [facility] Ketorolac Tromethamine 10 MG Oral Tablet 10 mg, Route: PO, Drug form: TAB, Q6H, Dosing Weight 92.528, kg, PRN Pain Score 1-3, Start date: 07/08/18 15:34:00 CDT, Duration: 4 day, Stop date: 07/12/18 15:33:00 CDT Inactive 07/08/2018 [facility] Hydrochlorothiazide 25 mg, 1 tab, Route: PO, Drug form: TAB, ONCE, Dosing Weight 92.528, kg, Start date: 07/08/18 9:38:00 CDT, Stop date: 07/08/18 9:38:00 CDTNotes: (Same as: Hydrodiuril) With food. Inactive 07/08/2018 [facility] Atenolol 50 MG / Chlorthalidone 25 MG Oral Tablet 1 tab, Route: PO, Drug Form: TAB, Dosing Weight 92.528, kg, ONCE, Start date: 07/08/18 9:37:00 CDT, Stop date: 07/08/18 9:37:00 CDT Inactive 07/08/2018 [facility] Paroxetine 12.5 mg, Route: PO, ONCE, Dosing Weight 92.528, kg, Start date: 07/08/18 9:35:00 CDT, Stop date: 07/08/18 9:35:00 CDT Inactive 07/08/2018 [facility] Oxazepam 10 mg, Route: PO, Drug form: CAP, ONCE, Dosing Weight 92.528, kg, Start date: 07/08/18 9:34:00 CDT, Stop date: 07/08/18 9:34:00 CDT Inactive 07/08/2018 [facility] Omnipaque 300 100 mL, Route: IV, Drug Form: SOLN, Dosing Weight 92.528, kg, ONCE, Start date: 07/08/18 7:25:00 CDT, Stop date: 07/08/18 7:25:00 CDTNotes: (Same as:Omnipaque 300). WASTE: F/P - Black; E - Municipal Trash Bin Inactive 07/08/2018 [facility] Acetaminophen 325 MG / Hydrocodone Bitartrate 7.5 MG Oral Tablet 1 tab, Route: PO, Drug Form: TAB, Dosing Weight 92.528, kg, Q4H, Start date: 07/07/18 16:00:00 CDT, Duration: 30 day, Stop date: 08/06/18 12:00:00 CDTNotes: Same as [place] 325-7.5mg Do not exceed 4gm/day of acetaminophen. No Longer Active 07/07/2018 [facility] Flumazenil 0.2 mg, Route: IVP, PRN, Dosing Weight 92.528, kg, PRN Benzodiazepine Reversal, Initial dose, Start date: 07/07/18 12:29:00 CDT, Duration: 30 day, Stop date: 08/06/18 12:28:00 CDT Inactive 07/07/2018 [facility] Naloxone 0.4 mg, Route: IVP, Q2MIN, Dosing Weight 92.528, kg, PRN Narcotic Reversal, Start date: 07/07/18 12:29:00 CDT, Duration: 8 doses or times, Stop date: Limited # of times Inactive 07/07/2018 [facility] Ondansetron 4 mg, Route: IVP, ONCE, Dosing Weight 92.528, kg, PRN Nausea & Vomiting, Start date: 07/07/18 12:29:00 CDT Inactive 07/07/2018 [facility] Fentanyl 25 microgram, Route: IVP, Q5Min, Dosing Weight 92.528, kg, PRN Pain Score 4-6, Priority: Routine, Start date: 07/07/18 12:29:00 CDT, Duration: 4 doses or times, Stop date: Limited # of times Inactive 07/07/2018 [facility] Hydralazine 10 mg, Route: IVP, Q20Min, Dosing Weight 92.528, kg, PRN Elevated BP, Start date: 07/07/18 12:29:00 CDT, Duration: 2 doses or times, Stop date: Limited # of times Inactive 07/07/2018 [facility] ketOROLAC 30 mg/mL injectable solution 30 mg, 1 mL, Route: IVP, Drug form: INJ, Q6H, Dosing Weight 92.528, kg, Start date: 07/07/18 12:00:00 CDT, Duration: 4 day, Stop date: 07/11/18 9:30:00 CDTNotes: (Same as:Toradol) IV bolus must be given >15 seconds. Give IM administration slowly and deeply into the muscle. Not for use > 4 days MEDICATION WASTE Product Size: 30 mg Product Wasted: ___ mg No Longer Active 07/07/2018 [facility] Benadryl 25 mg, 1 tab, Route: PO, Drug form: TAB, TID, Dosing Weight 92.528, kg, PRN Itching, Start date: 07/07/18 11:59:00 CDT, Duration: 30 day, Stop date: 08/06/18 11:58:00 CDT No Longer Active 07/07/2018 [facility] Ondansetron 4 mg, 2 mL, Route: IVP, Drug form: INJ, Q8H, Dosing Weight 92.528, kg, PRN Nausea, Start date: 07/07/18 11:59:00 CDT, Duration: 30 day, Stop date: 08/06/18 11:58:00 CDTNotes: (Same as: Zodeandre) MEDICATION WASTE Product Size: 4 mg Product Wasted: ___ mg No Longer Active 07/07/2018 [facility] Lactated Ringers IV 1,000 mL 1,000 mL, Rate: 125 ml/hr, Infuse over: 8 hr, Route: IV, Dosing Weight 92.528 kg, Total Volume: 1,000, Start date: 07/07/18 11:59:00 CDT, Duration: 30 day, Stop date: 08/06/18 11:58:00 CDT, 2.08, m2 No Longer Active 07/07/2018 [facility] Hydromorphone 15 mg, 30 mL, Route: IV, Initial Loading Dose: 0.4mg, TECHNICAL SUPPORT COORDINATOR Dose: 0.1mg, TECHNICAL SUPPORT COORDINATOR Lockout: 10 minutes, Continuous Basal Rate: 0.1 mg, 4 Hour Limit (In MG): 2.8, Drug Form: INJ, Continuous, Start date: 07/07 11:58:00 CDT, Duration: 30 day, Stop date: 08/06...Notes: (Same as: Dilaudid) conc=0.5 mg/ml Hydromorphone TECHNICAL SUPPORT COORDINATOR Dose: ;Delay: ;Basal: Inactive 07/07/2018 [facility] Naloxone 0.04 mg, 0.1 mL, Route: IVP, Drug form: INJ, Q2MIN, Dosing Weight 92.528, kg, PRN Narcotic Reversal, Start date: 07/07/18 11:58:00 CDT, Duration: 30 day, Stop date: 08/06/18 11:57:00 CDTNotes: Same as Narcan Inactive 07/07/2018 [facility] Calcium Chloride 0.0014 MEQ/ML / Potassium Chloride 0.004 MEQ/ML / Sodium Chloride 0.103 MEQ/ML / Sodium Lactate 0.028 MEQ/ML Injectable Solution 1,000 mL, Rate: 25 ml/hr, Infuse over: 40 hr, Route: IV, Dosing Weight 92.528 kg, Total Volume: 1,000, Start date: 07/07/18 6:36:00 CDT, Duration: 30 day, Stop date: 08/06/18 6:35:00 CDT, 2.08, m2 Inactive 07/07/2018 [facility] Tums 500 mg, CHEW, PRN as needed for dyspepsia, 0 Refill(s) Active 07/01/2018 [facility] Hydrochlorothiazide 25 mg, PO, Daily, 0 Refill(s) Active 07/01/2018 [facility] Januvia PO, Daily, 0 Refill(s) Active 07/01/2018 [facility] PARoxetine 12.5 mg oral tablet, extended release 12.5 mg=1 tab, PO, QAM, 0 Refill(s) Active 07/01/2018 [facility] Oxazepam 10 MG Oral Capsule 10 mg=1 cap, PO, QID, 0 Refill(s) Active 07/01/2018 [facility] Atenolol 50 MG / Chlorthalidone 25 MG Oral Tablet 1 tab, PO, Daily, 0 Refill(s) Active 07/01/2018 [facility] Atenolol Daily Active [facility] Oxazepam 10 Mg Cap Daily Active [facility] Paroxetine Hcl (Paxil Cr) 12.5 Mg Tabsr Daily Active [facility] Vitamin B-12 Daily Active [facility] Vitamin D Daily Active [facility] Allergies, Adverse Reactions, Alerts Substance Category Reaction Severity Reaction type Status Date Reported Comments Source No Known Medication Allergies Assertion Drug allergy [facility] Immunizations Immunization Date Given Site Status Last Updated Comments Source pneumococcal 23-valent vaccine 07/08/2018 Not Given [facility] Results Order Name Results Value Reference Range Date Interpretation Comments Source CHEM PANEL eGFR 89 07/08/2018 Result Comment: The eGFR is calculated using the [...] from the National Kidney Disease Education Program (NKDEP) which additionally recommends that when the eGFR is used in patients with extremes of body mass index for purposes of drug dosing, the eGFR should be multiplied by the estimated BMI. [facility] CHEM PANEL AST 31 0 - 37 07/08/2018 [facility] CHEM PANEL Alk Phos 70 39 - 136 07/08/2018 [facility] CHEM PANEL Bili Total 0.4 0.2 - 1.3 07/08/2018 [facility] CHEM PANEL ALT 34 0 - 65 07/08/2018 [facility] CHEM PANEL Albumin Lvl 2.5 3.5 - 5.0 07/08/2018 [facility] CHEM PANEL Total Protein 5.9 6.4 - 8.4 07/08/2018 [facility] CHEM PANEL Potassium Lvl 4.1 3.5 - 5.1 07/08/2018 [facility] CHEM PANEL Calcium Lvl 8.5 8.5 - 10.5 07/08/2018 [facility] CHEM PANEL CO2 28 24 - 32 07/08/2018 [facility] CHEM PANEL BUN 16 7 - 22 07/08/2018 [facility] CHEM PANEL Chloride Lvl 105 95 - 109 07/08/2018 [facility] CHEM PANEL Creatinine Lvl 0.73 0.50 - 1.40 07/08/2018 [facility] CHEM PANEL Sodium Lvl 138 135 - 145 07/08/2018 [facility] CHEM PANEL Glucose Lvl 130 70 - 99 07/08/2018 [facility] CHEM PANEL AGAP 9.1 10.0 - 20.0 07/08/2018 [facility] CHEM PANEL A/G Ratio 0.7 0.7 - 1.6 07/08/2018 [facility] CHEM PANEL B/C Ratio 22 6 - 25 07/08/2018 [facility] CHEM PANEL Globulin 3.4 2.7 - 4.2 07/08/2018 [facility] MCHC 33.7 32.0 - 36.0 07/08/2018 [facility] MCH 31.7 27.0 - 31.0 07/08/2018 [facility] Hct 38.9 36.0 - 48.0 07/08/2018 [facility] MCV 93.9 80.0 - 98.0 07/08/2018 [facility] RBC 4.15 4.20 - 5.40 07/08/2018 [facility] Hgb 13.1 12.0 - 16.0 07/08/2018 [facility] RDW 14.3 11.5 - 14.5 07/08/2018 [facility] MPV 9.2 7.4 - 10.4 07/08/2018 [facility] Platelet 197 133 - 450 07/08/2018 [facility] WBC 14.1 3.7 - 10.4 07/08/2018 [facility] Lymphocytes # 0.9 1.0 - 5.5 07/08/2018 [facility] Monocytes # 0.8 0.0 - 0.8 07/08/2018 [facility] Basophils 0.1 0.0 - 1.0 07/08/2018 [facility] Neutrophils # 12.4 1.5 - 8.1 07/08/2018 [facility] Lymphocytes 6.2 20.0 - 40.0 07/08/2018 [facility] Monocytes 5.6 2.0 - 12.0 07/08/2018 [facility] Segs 88.1 45.0 - 75.0 07/08/2018 [facility] BLOOD BANK RESULTS ABO/Rh A POS 07/01/2018 [facility] BLOOD [facility] RESULTS Antibody Scrn Negative (07/01/18 3:16 PM) 07/01/2018 [facility] ELECTROLYTES AGAP 13.3 10.0 - 20.0 07/01/2018 [facility] ELECTROLYTES Calcium Lvl 9.7 8.5 - 10.5 07/01/2018 [facility] ELECTROLYTES eGFR 73 07/01/2018 Result Comment: The eGFR is calculated using the [...] from the National Kidney Disease Education Program (NKDEP) which additionally recommends that when the eGFR is used in patients with extremes of body mass index for purposes of drug dosing, the eGFR should be multiplied by the estimated BMI. [facility] ELECTROLYTES Glucose Lvl 91 70 - 99 07/01/2018 [facility] ELECTROLYTES Chloride Lvl 102 95 - 109 07/01/2018 [facility] ELECTROLYTES Potassium Lvl 3.3 3.5 - 5.1 07/01/2018 [facility] ELECTROLYTES CO2 28 24 - 32 07/01/2018 [facility] ELECTROLYTES Creatinine Lvl 0.85 0.50 - 1.40 07/01/2018 [facility] ELECTROLYTES Sodium Lvl 140 135 - 145 07/01/2018 [facility] ELECTROLYTES BUN 17 7 - 22 07/01/2018 [facility] Platelet 240 133 - 450 07/01/2018 [facility] MPV 8.9 7.4 - 10.4 07/01/2018 [facility] MCHC 32.9 32.0 - 36.0 07/01/2018 [facility] MCH 31.0 27.0 - 31.0 07/01/2018 [facility] MCV 94.2 80.0 - 98.0 07/01/2018 [facility] Hct 47.7 36.0 - 48.0 07/01/2018 [facility] WBC 11.2 3.7 - 10.4 07/01/2018 [facility] RBC 5.07 4.20 - 5.40 07/01/2018 [facility] RDW 14.8 11.5 - 14.5 07/01/2018 [facility] Hgb 15.7 12.0 - 16.0 07/01/2018 [facility] Basophils # 0.1 0.0 - 0.2 07/01/2018 [facility] Eosinophils # 0.3 0.0 - 0.5 07/01/2018 [facility] HEMATOLOGY Monocytes # 1.0 0.0 - 0.8 07/01/2018 [facility] HEMATOLOGY Lymphocytes # 1.9 1.0 - 5.5 07/01/2018 [facility] HEMATOLOGY Neutrophils # 8.0 1.5 - 8.1 07/01/2018 [facility] HEMATOLOGY Lymphocytes 17.0 20.0 - 40.0 07/01/2018 [facility] HEMATOLOGY Eosinophils 2.3 0.0 - 4.0 07/01/2018 [facility] Monocytes 9.0 2.0 - 12.0 07/01/2018 [facility] HEMATOLOGY Segs 71.1 45.0 - 75.0 07/01/2018 [facility] HEMATOLOGY Basophils 0.6 0.0 - 1.0 07/01/2018 [facility] SPECIAL CHEMISTRY Hgb A1C 6.4 <=5.6 % 07/01/2018 [facility] Automated blood basophil count (count/volume) Automated blood basophil count (count/volume) 0.1 0.0 - 0.1 07/22/2017 [facility] Automated blood basophil count as percentage of total leukocytes Automated blood basophil count as percentage of total leukocytes 0.8 0.0 - 1.0 07/22/2017 [facility] Automated blood eosinophil count Automated blood eosinophil count 0.3 0.0 - 0.4 07/22/2017 [facility] Automated blood eosinophil count as percentage of total leukocytes Automated blood eosinophil count as percentage of total leukocytes 2.7 0.0 - 6.0 07/22/2017 [facility] Automated blood hematocrit (volume fraction) Automated blood hematocrit (volume fraction) 44.1 34.2 - 44.1 07/22/2017 [facility] Automated blood lymphocyte count as percentage ot total leukocytes Automated blood lymphocyte count as percentage ot total leukocytes 18.3 18.0 - 39.1 07/22/2017 [facility] Automated blood monocyte count as percentage of total leukocytes Automated blood monocyte count as percentage of total leukocytes 13.6 4.4 - 11.3 07/22/2017 [facility] Automated blood neutrophil count Automated blood neutrophil count 7.7 2.1 - 6.9 07/22/2017 [facility] Automated blood platelet count (count/volume) Automated blood platelet count (count/volume) 289 140 - 360 07/22/2017 [facility] Automated blood segmented neutrophil count as percentage of total leukocytes Automated blood segmented neutrophil count as percentage of total leukocytes 63.3 38.7 - 80.0 07/22/2017 [facility] Automated erythrocyte mean corpuscular hemoglobin (mass per erythrocyte) Automated erythrocyte mean corpuscular hemoglobin (mass per erythrocyte) 31.0 28 - 32 07/22/2017 [facility] Automated erythrocyte mean corpuscular hemoglobin concentration measurement (mass/volume) Automated erythrocyte mean corpuscular hemoglobin concentration measurement (mass/volume) 33.6 31 - 35 07/22/2017 [facility] Automated erythrocyte mean corpuscular volume Automated erythrocyte mean corpuscular volume 92.5 81 - 99 07/22/2017 [facility] Blood erythrocytes automated count (number/volume) Blood erythrocytes automated count (number/volume) 4.77 3.6 - 5.1 07/22/2017 [facility] Blood hemoglobin measurement (moles/volume) Blood hemoglobin measurement (moles/volume) 14.8 12.0 - 16.0 07/22/2017 [facility] Blood leukocytes automated count (number/volume) Blood leukocytes automated count (number/volume) 12.17 4.8 - 10.8 07/22/2017 [facility] Blood lymphocytes count (number/volume) Blood lymphocytes count (number/volume) 2.2 1.0 - 3.2 07/22/2017 [facility] Blood lymphocytes variant count (number/volume) Blood lymphocytes variant count (number/volume) 3 07/22/2017 [facility] Blood monocytes automated count (number/volume) Blood monocytes automated count (number/volume) 1.7 0.2 - 0.8 07/22/2017 [facility] Blood platelets count by estimate (number/volume) Blood platelets count by estimate (number/volume) ADEQUATE 07/22/2017 [facility] Estimated glomerular filtration rate (GFR) determination Estimated glomerular filtration rate (GFR) determination >60 60 07/22/2017 [facility] Fibrin D-dimer DDU measurement in platelet poor plasma (mass/volume) Fibrin D-dimer DDU measurement in platelet poor plasma (mass/volume) 1.18 0.00 - 0.45 07/22/2017 [facility] Glucose measurement Glucose measurement 84 74 - 118 07/22/2017 [facility] Manual blood lymphocytes/100 leukocytes Manual blood lymphocytes/100 leukocytes 18 19 - 48 07/22/2017 [facility] Manual blood monocytes/100 leukocytes Manual blood monocytes/100 leukocytes 14 3.4 - 9.0 07/22/2017 [facility] Manual blood neutrophils/100 leukocytes Manual blood neutrophils/100 leukocytes 65 40 - 74 07/22/2017 [facility] Plasma globulin measurement (mass/volume) Plasma globulin measurement (mass/volume) 4.4 2.3 - 3.5 07/22/2017 [facility] Platelet morphology Platelet morphology NORMAL 07/22/2017 [facility] RBC morphology RBC morphology NORMAL 07/22/2017 [facility] Serum or plasma alanine aminotransferase measurement (enzymatic activity/volume) Serum or plasma alanine aminotransferase measurement (enzymatic activity/volume) 20 0 - 55 07/22/2017 [facility] Serum or plasma albumin measurement (mass/volume) Serum or plasma albumin measurement (mass/volume) 3.3 3.5 - 5.0 07/22/2017 [facility] Serum or plasma albumin/globulin mass ratio Serum or plasma albumin/globulin mass ratio 0.8 0.8 - 2.0 07/22/2017 [facility] Serum or plasma alkaline phosphatase measurement (enzymatic activity/volume) Serum or plasma alkaline phosphatase measurement (enzymatic activity/volume) 79 40 - 150 07/22/2017 [facility] Serum or plasma anion gap Serum or plasma anion gap 12.1 8 - 16 07/22/2017 [facility] Serum or plasma calcium measurement (mass/volume) Serum or plasma calcium measurement (mass/volume) 9.9 8.4 - 10.2 07/22/2017 [facility] Serum or plasma carbon dioxide, total measurement (moles/volume) Serum or plasma carbon dioxide, total measurement (moles/volume) 31 22 - 29 07/22/2017 [facility] Serum or plasma chloride measurement (moles/volume) Serum or plasma chloride measurement (moles/volume) 99 98 - 107 07/22/2017 [facility] Serum or plasma creatinine measurement (mass/volume) Serum or plasma creatinine measurement (mass/volume) 0.79 0.57 - 1.11 07/22/2017 [facility] Serum or plasma potassium measurement (moles/volume) Serum or plasma potassium measurement (moles/volume) 3.1 3.5 - 5.1 07/22/2017 [facility] Serum or plasma protein measurement (mass/volume) Serum or plasma protein measurement (mass/volume) 7.7 6.5 - 8.1 07/22/2017 [facility] Serum or plasma sodium measurement (moles/volume) Serum or plasma sodium measurement (moles/volume) 139 136 - 145 07/22/2017 [facility] Serum or plasma total bilirubin measurement (mass/volume) Serum or plasma total bilirubin measurement (mass/volume) 0.6 0.2 - 1.2 07/22/2017 [facility] Serum or plasma urea nitrogen measurement (mass/volume) Serum or plasma urea nitrogen measurement (mass/volume) 14 7 - 26 07/22/2017 [facility] Serum or plasma urea nitrogen/creatinine mass ratio Serum or plasma urea nitrogen/creatinine mass ratio 18 6 - 25 07/22/2017 [facility] Red Cell Distribution Width 14.4 11.7 - 14.4 07/22/2017 [facility] IM GRANULOCYTES % 1.3 0.0 - 1.0 07/22/2017 [facility] Absolute Immature Granulocyte (auto 0.16 0 - 0.1 07/22/2017 [facility] Differential Total Cells Counted 100 07/22/2017 [facility] Aspartate Amino Transf (AST/SGOT) 23 5 - 34 07/22/2017 [facility] Automated urine sediment leukocyte count by microscopy (number/high power field) Automated urine sediment leukocyte count by microscopy (number/high power field) <5 0 - 5 07/22/2017 [facility] Bacteria detection in urine sediment by light microscopy Bacteria detection in urine sediment by light microscopy FEW NONE 07/22/2017 [facility] Epithelial cells detection in urine sediment by light microscopy Epithelial cells detection in urine sediment by light microscopy FEW NONE 07/22/2017 [facility] Erythrocytes detection in urine sediment by light microscopy Erythrocytes detection in urine sediment by light microscopy <5 0 - 5 07/22/2017 [facility] Specific gravity of Urine by Test strip Specific gravity of Urine by Test strip 1.020 1.010 - 1.025 07/22/2017 [facility] Urine clarity Urine clarity CLEAR CLEAR 07/22/2017 [facility] Urine color determination Urine color determination YELLOW YELLOW 07/22/2017 [facility] Urine erythrocytes detection Urine erythrocytes detection TRACE NEGATIVE 07/22/2017 [facility] Urine glucose detection Urine glucose detection NEGATIVE NEGATIVE 07/22/2017 [facility] Urine ketones detection by automated test strip Urine ketones detection by automated test strip NEGATIVE NEGATIVE 07/22/2017 [facility] Urine leukocyte esterase detection by dipstick Urine leukocyte esterase detection by dipstick NEGATIVE NEGATIVE 07/22/2017 [facility] Urine nitrite detection Urine nitrite detection NEGATIVE NEGATIVE 07/22/2017 [facility] Urine pH measurement by automated test strip Urine pH measurement by automated test strip 6 5 - 7 07/22/2017 [facility] Urine protein measurement by test strip (mass/volume) Urine protein measurement by test strip (mass/volume) NEGATIVE NEGATIVE 07/22/2017 [facility] Urine total bilirubin measurement (mass/volume) Urine total bilirubin measurement (mass/volume) NEGATIVE NEGATIVE 07/22/2017 [facility] Urine urobilinogen measurement by test strip (mass/volume) Urine urobilinogen measurement by test strip (mass/volume) 1 0.2 - 1 07/22/2017 [facility] Pathology Reports No Data Provided for This Section Diagnostic Reports Report Value Date Source Intravenous Pyelogram DX Intravenous Pyelogram DX CLINICAL HISTORY: - post-op hysterectomy. COMPARISON: None TECHNIQUE: IVP was performed with standard technique after intravenous infusion of nonionic contrast material. 100cc of omnipaque> contrast material was administered. 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 [...] evidence for obstruction or ureteral injury. SL: [id number] 07/08/2018 [facility] Breast Mammo Scrn [place]EN w campos incl CAD MA BILATERAL DIGITAL SCREENING MAMMOGRAM 3D/2D WITH CAD: 03/09/2018 CLINICAL: /Routine. Current study was evaluated with a Computer Aided Detection (CAD) system. COMPARISON:Comparison is made to exams dated: 11/20/2015 mammogram, 06/17/2015 mammogram, 11/14/2014 mammogram - [facility], 08/20/2014 mammogram, and 05/20/2007 mammogram - [facility]. TECHNIQUE: Digital Breast Tomosynthesis was performed and utilized for Interpretation. Dragon Lawa Version 1.3 was utilized for computer aided [...] is recommended.(03/10/2019) This exam was interpreted at [id number] for [facility]. Burak parham/penrad:03/09/2018 14:54:15 Code Enforcement Inspector(s): Kimmy Soriano, [facility] letter sent: BI-RADS 1/2 Mammogram BI-RADS: 2 Benign 03/09/2018 [facility] Breast Complete Uni US - BREAST COMPLETE UNI US/R ULTRASOUND OF RIGHT BREAST AND RIGHT AXILLA: 11/20/2015 CLINICAL: Cyst abnormal mammogram, mammographic nodule/density probably benign finding - follow up. Comparison is made to exams dated: 11/20/2015 mammogram, 06/17/2015 ultrasound, 06/17/2015 mammogram, 11/14/2014 ultrasound, 11/14/2014 mammogram - [facility] and 08/20/2014 mammogram - [facility]. Color flow and real-time ultrasound of the [...] results were reviewed with the patient. Burak parham/:11/20/2015 09:56:55 Code Enforcement Inspector: Markus Simon, [facility] This exam was dictated and interpreted by [id number] for [facility]. letter sent: Followup Ultrasound BI-RADS: 3 Probably benign 11/20/2015 [facility] Digital Mammo DX [place] - DIGITAL MAMMO DX [place] BILATERAL DIGITAL DIAGNOSTIC MAMMOGRAM WITH CAD: 11/20/2015 CLINICAL: 6 Mo Follow Up probably benign finding right breast mass. Current study was evaluated with a Computer Aided Detection (CAD) system. Comparison is made to exams dated: 06/17/2015 mammogram, 11/14/2014 mammogram - [facility], 08/20/2014 mammogram, 05/20/2007 mammogram - [facility], 07/28/2005 and 10/10/2002 mammogram - [facility]. There are scattered fibroglandular densities in both [...] also reevaluate prior probably benign findings. Burak parham/spenser:11/20/2015 09:50:43 Code Enforcement Inspector: Junie Santos, [facility] This exam was dictated and interpreted by [id number] for [facility]. Mammogram BI-RADS: 0 Indeterminate 11/20/2015 [facility] Pelvis w Pelvis Transvaginal US Clinical Indication: [...] may represent endometrial hyperplasia or malignancy. SL: [id number] 11/20/2015 [facility] Breast Complete Uni US - BREAST COMPLETE UNI US/R ULTRASOUND OF RIGHT BREAST AND RIGHT AXILLA: 06/17/2015 CLINICAL: Cyst. Comparison is made to exams dated: 06/17/2015 mammogram, 11/14/2014 ultrasound and 11/14/2014 mammogram - [facility]. Ultrasound was performed over all four quadrants, [...] demonstrate stability. Nic Farrar M.D. ap/penrad:06/17/2015 10:18:03 Code Enforcement Inspector: Markus Simon, [facility] This exam was dictated and interpreted by [id number] for [facility]. letter sent: Followup Ultrasound BI-RADS: 3 Probably benign 06/17/2015 [facility] Digital Mammo DX Uni [place] - DIGITAL MAMMO DX UNI MA/R UNILATERAL RIGHT DIGITAL DIAGNOSTIC MAMMOGRAM: 06/17/2015 CLINICAL: 6 Mth F/U. Comparison is made to exams dated: 11/14/2014 mammogram - [facility], 08/20/2014 mammogram, 05/20/2007 mammogram - [facility], 07/28/2005 and 10/10/2002 mammogram - [facility]. There are scattered fibroglandular densities in the [...] separate report. Nic Farrar M.D. ap/penrad:06/17/2015 09:25:17 Code Enforcement Inspector: Kimmy Soriano, [facility] This exam was dictated and interpreted by [id number] for [facility]. Mammogram BI-RADS: 0 Indeterminate 06/17/2015 [facility] Breast Complete Uni US - BREAST COMPLETE UNI US/R ULTRASOUND OF RIGHT BREAST AND RIGHT AXILLA: 11/14/2014 CLINICAL: Nodule abnormal mammogram, mammographic nodule/density. Comparison is made to exams dated: 11/14/2014 mammogram - [facility], 08/20/2014 mammogram, 05/20/2007 mammogram - [facility] and 07/28/2005. Color flow and real-time ultrasound [...] recommended to demonstrate stability. Burak parham/:11/14/2014 09:33:32 Code Enforcement Inspector: Markus Simon, [facility] This exam was dictated and interpreted by [id number] for [facility]. letter sent: Followup Ultrasound BI-RADS: 3 Probably benign 11/14/2014 [facility] Digital Mammo DX Uni [place] - DIGITAL MAMMO DX UNI MA/R UNILATERAL RIGHT DIGITAL DIAGNOSTIC MAMMOGRAM WITH CAD: 11/14/2014 CLINICAL: Mammographic Abnormality. Current study was evaluated with a Computer Aided Detection (CAD) system. Comparison is made to exams dated: 08/20/2014 mammogram, 05/20/2007 mammogram - [facility] and 07/28/2005. There are scattered fibroglandular densities [...] see dedicated separate report. Burak parham/penrad:11/14/2014 09:33:54 Code Enforcement Inspector: Junie Santos, [facility] This exam was dictated and interpreted by [id number] for [facility]. Mammogram BI-RADS: 0 Indeterminate 11/14/2014 [facility] Consultation Notes No Data Provided for This Section Discharge Summaries No Data Provided for This Section History and Physicals No Data Provided for This Section Vital Signs Vital Sign Value Date Comments Source Respitory Rate 17 07/08/2018 [facility] Heart Rate 60 07/08/2018 [facility] Temperature Oral (F) 98.1 F 07/08/2018 [facility] Systolic (mm Hg) 129 07/08/2018 [facility] Diastolic (mm Hg) 59 07/08/2018 [facility] Respitory Rate 16 07/08/2018 [facility] Systolic (mm Hg) 108 07/08/2018 [facility] Diastolic (mm Hg) 68 07/08/2018 [facility] Respitory Rate 16 07/08/2018 [facility] Heart Rate 66 07/08/2018 [facility] Temperature Oral (F) 97.9 F 07/08/2018 [facility] Temperature Oral (F) 97.7 F 07/07/2018 [facility] Heart Rate 62 07/07/2018 [facility] Systolic (mm Hg) 150 07/07/2018 [facility] Diastolic (mm Hg) 76 07/07/2018 [facility] Weight 92.528 07/01/2018 [facility] Height 163.83 cm 07/01/2018 [facility] BMI Calculated 34.47 07/01/2018 [facility] Encounters Location Location Details Encounter Type Encounter Number Reason For Visit Attending Provider ADM Date DC Date Status Source [facility] Outpatient Imaging [facility] [id number] Bharath Cassidy 08/20/2014 08/21/2014 [facility] Outpatient [id number] Bharath Cassidy 06/17/2015 06/18/2015 [facility] Outpatient [id number] Bharath Cassidy 11/20/2015 11/21/2015 [facility] Departed Emergency Room [id number] SANDEE RAMIREZ MD 07/22/2017 07/22/2017 [facility] Outpatient [id number] Bharath Cassidy 03/09/2018 03/10/2018 [facility] Observation [id number] Bharath Rodriguezen 07/07/2018 07/08/2018 [facility] Procedures Procedure Code Date Perfomer Comments Source Computed tomography of chest with contrast [id number] 07/22/2017 [facility] Neck procedure [id number] 04/05/2017 [facility] Hip replacement<sup>1</sup> [id number] 04/05/2016 left hip [facility] Appendectomy [id number] [facility] Bilateral tubal ligation [id number] [facility] Spinal operation [id number] [facility] Assessment and Plan No Data Provided for This Section Plan of Care Plan of Care Date Source Discharge Date 07/22/17 3:25am Disposition HOME, SELF-CARE Condition at Discharge Stable Instructions/Education Provided Back Pain Pleurisy Pneumonia - Bacterial Forms Provided Work/School Excuse Prescriptions See Medication Section Referrals JAN DELATORRE MD Address: [address] [place] [phone] Additional Instructions/Education FOLLOW UP WITH PRIMARY CARE PHYSICAN IN 10- 14 DAYS FOR REPEAT CHEST XRAY. TAKE OVER THE COUNTER MOTRIN OR TYLENOL FOR PAIN. TAKE ALL MEDICATION DIRECTED. 07/22/2017 [facility] Social History Social History Date Source Social History TypeResponse Employment/School Status: Employed. Smoking Status Current every day smoker; Type: Cigarettes; Exposure to Tobacco Smoke None; Cigarette Smoking Last 365 Days Yes; Reg Smoking Cessation Counseling No; Tobacco use per day: 15; entered on: 07/07/18 07/01/2018 [facility] No social history information available. 07/22/2017 [facility] No data available for this section 08/21/2014 MIGUEL A Nelson Family History No Data Provided for This Section Advance Directives Order Name Results Value Date Source Advance Directives Advance Directives Directive Response Recorded Date/Time Does the patient have an advance directive? No 11/19/15 8:03am If yes, is advance directive on file with [facility]? No 11/19/15 8:03am If not on file with [facility] will patient provide a copy? No 11/19/15 8:03am Do you have a Directive to Physician? No 07/21/17 11:58pm Do you have a Medical Power of [employer] Supervisor? No 07/21/17 11:58pm Do you have an out of hospital Do Not Resuscitate Order? No 07/21/17 11:58pm Do you have any special needs we should be aware of? No 07/21/17 11:58pm Do you have a support person here with you today? Yes 07/21/17 11:58pm Did patient receive Notice of Privacy Practices? Yes 07/21/17 11:58pm Did patient receive patient rights and responsibilities? Yes 07/21/17 11:58pm 07/22/2017 [facility] Functional Status No Data Provided for This Section
[2018-10-08 08:10] VITALS: BP 111/46
== END 2018-10-08 08:18 | disposition home or self-care (01) ==
LOC: ER 07:21
DX: L02.811 Cutaneous abscess of head [any part, except face] (principal); I10 Essential (primary) hypertension; E11.9 Type 2 diabetes mellitus without complications; F41.9 Anxiety disorder, unspecified; F32.9 Major depressive disorder, single episode, unspecified; Z96.642 Presence of left artificial hip joint
CPT/HCPCS: 36415; 82948; 99282

== ENCOUNTER → 2019-06-03 | Day surgery (SDC) | payer BC ==
[~2019-06-03] MED LIST changes: +ATENOLOL-CHLOR1 EAC1 PO; +FENTANYL CITRATE/PF 100MCG/2 ML INJ ONE; +GLUCAGON FOR INJ 1 MG VIAL ONE; +HYDROCHLOROTHIA25 MG; +HYOSCYAMINE 0.125 MG TAB ONE; +JANUVIA25 MG PO; +MIDAZOLAM HCL 2 MG/2 ML VIAL ONE; +PANTOPRAZOLE SO40 MG PO; +PROPOFOL IV EMULSION 10 MG/ML 50 ML VIAL ONE
[2019-06-03 17:31] VITALS: BP 134/70
--- NOTE | 2019-06-03 23:31 | Operative Report ---
DATE OF PROCEDURE: 06/03/2019 SURGEON: Akbar Goddard MD PROCEDURE: EGD with brushings and biopsies and colonoscopy with polypectomy. INDICATIONS FOR EGD: Heartburn, indigestion. INDICATIONS FOR COLONOSCOPY: Colorectal cancer screening, father with colon cancer, personal history of colon polyps. MEDICATIONS: The patient was done under MAC, please see anesthesiologist's note. PROCEDURE IN DETAIL: With the patient in left lateral decubitus position, a flexible fiberoptic Olympus gastroscope was introduced into the esophagus under direct visualization without any difficulty. There was some scattered yellowish plaques noted and brushings were done to rule out Char esophagitis. Focal nodularity was noted at the GE junction that was biopsied. The scope was then advanced with ease into the stomach and mucosa overlying the antrum and the body revealed some patchy erythema, [id number] edema, and biopsies were obtained and sent to stain for H. pylori. Several gastric ulcers were minute and noted in the antrum and biopsies were obtained. The pylorus was of normal contour and shape, was intubated with ease and the scope was advanced all the way to the second portion of the duodenum. The scope was then withdrawn slowly. Mucosa overlying the proximal second portion and duodenal bulb appeared to be within normal limits. The scope was then withdrawn back into the stomach and retroflexed and mucosa overlying the fundus and cardia appeared to be within normal limits. The scope was then straightened out, it was subsequently withdrawn. The patient tolerated procedure well. IMPRESSION: 1. Rule out Char esophagitis. 2. Focal nodularity, GE junction, biopsied. 3. Gastritis, biopsied. Biopsies sent to stain for H pylori. 4. Gastric ulcers, antrum, biopsies obtained. PLAN: Follow up histology. Increase Protonix to 40 mg one p.o. before meals b.i.d. The patient was then turned around. After adequate lubrication of the anal canal, a flexible fiberoptic Olympus colonoscope was inserted into the rectum with ease and advanced all the way to the cecum. Mucosa overlying the cecum appeared to be within normal limits. One polyp was hot biopsied from the proximal ascending colon. The rest of the ascending colon appeared to be within normal limits. One polyp was hot snared from the transverse colon. One polyp was hot snared from the descending colon. Diverticular disease was noted to involve the distal descending and the sigmoid colon. Six polyps were hot snared and 5 polyps were hot biopsied from the sigmoid colon. One submucosal nodule in the distal rectum was removed per snare electrocautery. The scope was then retroflexed into the distal rectum and small internal hemorrhoids were noted, none of which was actively bleeding. The scope was then straightened out, it was subsequently withdrawn. The patient tolerated the procedure well. IMPRESSION: 1. Ascending colon polyp, hot biopsied. 2. Transverse colon polyp, hot snared. 3. Descending colon polyp, hot snared. 4. Diverticulosis. 5. Sigmoid colon polyps x11, 6 hot snared and 5 hot biopsied. 6. Submucosal nodule, rectum, rule out carcinoid, removed per snare electrocautery. 7. Internal hemorrhoids, none actively bleeding. PLAN: Followup histology. Initiate high-fiber, low-fat diet. Initiate high-fiber supplement. The patient will need a followup colonoscopy in 1 year. A total of 15 polyps were removed. Akbar Goddard MD [facility]/JOSE JUANL /[id number] cc: Patricia Douglas MD
== END | disposition home or self-care (01) ==
LOC: OR 14:01
PROVIDERS: ATTEND Internal Medicine Gastroenterology
DX: R19.7 Diarrhea, unspecified (principal); D12.3 Benign neoplasm of transverse colon; K62.1 Rectal polyp; K29.70 Gastritis, unspecified, without bleeding; K25.9 Gastric ulcer, unspecified as acute or chronic, without hemorrhage or perforation; K22.8 Other specified diseases of esophagus; K20.9 Esophagitis, unspecified; K57.30 Diverticulosis of large intestine without perforation or abscess without bleeding; K62.89 Other specified diseases of anus and rectum; K64.8 Other hemorrhoids; G47.33 Obstructive sleep apnea (adult) (pediatric); I10 Essential (primary) hypertension; E11.9 Type 2 diabetes mellitus without complications; R00.1 Bradycardia, unspecified; B19.20 Unspecified viral hepatitis C without hepatic coma; F17.210 Nicotine dependence, cigarettes, uncomplicated; Z01.810 Encounter for preprocedural cardiovascular examination; Z79.84 Long term (current) use of oral hypoglycemic drugs; Z68.34 Body mass index [BMI] 34.0-34.9, adult; Z80.0 Family history of malignant neoplasm of digestive organs
CPT/HCPCS: 36415; 43239; 45384; 45385; 82948; 93005; J1610; J2250; J2704; J3010; 45378

== ENCOUNTER 2020-07-27 09:20 | Emergency (ER) | payer MEDICARE, BC ==
[~2020-07-27] VITALS: Ht 162.6 cm; Wt 91.2 kg
[~2020-07-27 09:20] MED LIST changes: -FENTANYL CITRATE/PF 100MCG/2 ML INJ ONE; -GLUCAGON FOR INJ 1 MG VIAL ONE; -HYOSCYAMINE 0.125 MG TAB ONE; -MIDAZOLAM HCL 2 MG/2 ML VIAL ONE; -PROPOFOL IV EMULSION 10 MG/ML 50 ML VIAL ONE
[2020-07-27] MEDS ORDERED: ACETAMINOPHEN 325 MG TAB PO ONE (10:00)
[2020-07-27] MEDS: SODIUM CHLORIDE 0.9% 1000ML 1,000 ML IV SCH ×2 (10:11→12:11)
[2020-07-27 10:34] LABS: BASOPHILS # (AUTO) 0.1 (0.0-0.1); BASOPHILS % 0.5 % (0.0-1.0); EOSINOPHILS # (AUTO) 0.5 (0.0-0.4); EOSINOPHILS % 3.3 % (0.0-6.0); HEMATOCRIT 49.6 % (34.2-44.1); HEMOGLOBIN 16.5 g/dL (12.0-16.0); LYMPHOCYTES # (AUTO) 0.8 (1.0-3.2); LYMPHOCYTES % 5.3 % (18.0-39.1); MEAN CORPUSCULAR HEMOGLOBIN 30.7 pg (28-32); MEAN CORPUSCULAR HGB CONC 33.3 g/dL (31-35); MEAN CORPUSCULAR VOLUME 92.2 fL (81-99); MONOCYTES # (AUTO) 0.9 (0.2-0.8); MONOCYTES % 6.1 % (4.4-11.3); NEUTROPHILS # (AUTO) 12.5 (2.1-6.9); NEUTROPHILS % 83.5 % (38.7-80.0); PLATELET COUNT 317 x10e3/uL (140-360); RED BLOOD COUNT 5.38 x10e6/uL (3.6-5.1); RED CELL DISTRIBUTION WIDTH 14.5 % (11.7-14.4)
[2020-07-27 10:53] LABS: ALBUMIN 3.4 g/dL (3.5-5.0); ALBUMIN/GLOBULIN RATIO 0.8 (0.8-2.0); ANION GAP 15.1 mmol/L (8-16); CALCIUM 9.6 mg/dL (8.4-10.2); CREATININE, SERUM 0.96 mg/dL (0.57-1.11); POTASSIUM 4.1 mmol/L (3.5-5.1)
[2020-07-27 11:00] LABS: CREATINE KINASE MB 2.5 ng/mL (0-5.0)
[2020-07-27 11:10] LABS: INFLUENZAE A&B ANTIGEN (RAPID) NEGATIVE (NEGATIVE)
[2020-07-27 11:11] LABS: STREPTOCOCCUS GRP A ANTIGEN NEGATIVE (NEGATIVE)
[2020-07-27] MEDS ORDERED: IPRATROPIUM BROMIDE 0.02% 2.5 ML NEB NEB ONE (12:00)
[2020-07-27] MEDS: METHYLPREDNISOLONE SOD SUCC 125 MG/2ML VIAL IV STA ×2 (12:10→14:14)
[2020-07-27] MEDS ORDERED: DEXTROSE 50% SYRINGE 50 ML IV STA (12:36)
== END 2020-07-27 14:16 | disposition home or self-care (01) ==
LOC: ER 10:04
DX: R06.02 Shortness of breath (principal); R05 Cough; J44.9 Chronic obstructive pulmonary disease, unspecified; E11.65 Type 2 diabetes mellitus with hyperglycemia; R53.81 Other malaise; I10 Essential (primary) hypertension; Z20.822 Contact with and (suspected) exposure to COVID-19; R94.31 Abnormal electrocardiogram [ECG] [EKG]
CPT/HCPCS: 36415; 71045; 80053; 82550; 82553; 83518; 84484; 85025; 87070; 87400; 93005; 99284; U0002

== ENCOUNTER → 2024-09-18 | Day surgery (SDC) | payer MEDICARE ==
[~2024-09-18] MED LIST changes: +ATIVAN1 MG PO; +B COMPLEX1 EACH; +ESMOLOL HCL 100MG/10ML 10 MG/ML VIAL ONE; +GLUCAGON FOR INJ 1 MG VIAL ONE; +HYOSCYAMINE SULFATE 0.5 MG/ML INJ ONE; +LIDOCAINE HCL 2% LOCAL INJ 5 ML SDV VIAL INJ ONE; +PROPOFOL IV EMULSION 10 MG/ML 20 ML VIAL ONE
[2024-09-18] MEDS: LACTATED RINGER'S 1,000 ML ONE (07:09)
[2024-09-18 07:19] LABS: BASOPHILS # (AUTO) 0.1 (0.0-0.1); BASOPHILS % 0.7 % (0.0-1.0); EOSINOPHILS # (AUTO) 0.1 (0.0-0.4); EOSINOPHILS % 1.1 % (0.0-6.0); HEMATOCRIT 47.4 % (34.2-44.1); HEMOGLOBIN 15.8 g/dL (12.0-16.0); LYMPHOCYTES # (AUTO) 0.9 (1.0-3.2); LYMPHOCYTES % 9.1 % (18.0-39.1); MEAN CORPUSCULAR HGB CONC 33.3 g/dL (31-35); MEAN CORPUSCULAR VOLUME 92.9 fL (81-99); MONOCYTES % 9.9 % (4.4-11.3); NEUTROPHILS # (AUTO) 7.6 (2.1-6.9); NEUTROPHILS % 78.7 % (38.7-80.0); PLATELET COUNT 246 x10e3/uL (140-360); WHITE BLOOD COUNT 9.67 x10e3/uL (4.8-10.8)
[2024-09-18 09:03] VITALS: TEMP 97.8
[2024-09-18 09:35] VITALS: BP 134/67; PULSE 98; RESP 16; O2SAT 98
== END | disposition home or self-care (01) ==
LOC: OR 06:14
PROVIDERS: ATTEND Internal Medicine Gastroenterology
DX: Z12.11 Encounter for screening for malignant neoplasm of colon (principal); C82.83 Other types of follicular lymphoma, intra-abdominal lymph nodes; K63.5 Polyp of colon; K62.1 Rectal polyp; K57.30 Diverticulosis of large intestine without perforation or abscess without bleeding; K64.8 Other hemorrhoids; I10 Essential (primary) hypertension; Z71.89 Other specified counseling; F32.A Depression, unspecified; F41.9 Anxiety disorder, unspecified; F17.210 Nicotine dependence, cigarettes, uncomplicated; Z88.6 Allergy status to analgesic agent; Z01.810 Encounter for preprocedural cardiovascular examination; Z01.812 Encounter for preprocedural laboratory examination; Z79.899 Other long term (current) drug therapy; Z68.29 Body mass index [BMI] 29.0-29.9, adult; Z71.3 Dietary counseling and surveillance; Z86.19 Personal history of other infectious and parasitic diseases
CPT/HCPCS: 36415; 45385; 85025; 88305; 88342; 93005; J1610; J1980; J2003; J2704; J7121; 45378

== ENCOUNTER → 2024-09-20 | Outpatient (REF) | payer MEDICARE ==
[~2024-09-20] MED LIST changes: -ESMOLOL HCL 100MG/10ML 10 MG/ML VIAL ONE; -GLUCAGON FOR INJ 1 MG VIAL ONE; -HYOSCYAMINE SULFATE 0.5 MG/ML INJ ONE; +IOPAMIDOL 370 MG/ML 100 ML INFUS..BTL INJ ONE; -LIDOCAINE HCL 2% LOCAL INJ 5 ML SDV VIAL INJ ONE; -PROPOFOL IV EMULSION 10 MG/ML 20 ML VIAL ONE
[2024-09-20 12:29] LABS: CREATININE, SERUM 0.8 mg/dL (0.57-1.11)
== END ==
LOC: CT 11:43
PROVIDERS: ATTEND Internal Medicine Gastroenterology
DX: R19.00 Intra-abdominal and pelvic swelling, mass and lump, unspecified site (principal)
CPT/HCPCS: 36415; 74177; 82565; 84520; Q9967

== ENCOUNTER → 2024-10-17 | Outpatient (REF) | payer MEDICARE ==
[~2024-10-17] MED LIST changes: -IOPAMIDOL 370 MG/ML 100 ML INFUS..BTL INJ ONE
== END ==
LOC: US 13:01
PROVIDERS: ATTEND Nurse Practitioner
DX: C82.93 Follicular lymphoma, unspecified, intra-abdominal lymph nodes (principal); K76.89 Other specified diseases of liver; Z86.19 Personal history of other infectious and parasitic diseases
CPT/HCPCS: 76700